=== PATIENT | female | born 1960 | race Caucasian/White ===

== ENCOUNTER 2021-06-23 05:58 | Inpatient (IN) | payer OTHER, SELFPAY ==
[2021-06-23] VITALS (88 sets, daily range): BP systolic 54–158; BP diastolic 17–95; PULSE 94–131; RESP 23–49; TEMP 35.3–37.1; O2SAT 64–96
--- NOTE | ~2021-06-23 | XR_ITS ---
XR chest port-a-cath/central DATE: 06/23/2021 09:00 INDICATION: Central line insertion TECHNIQUE: Portable AP view on 06/23/2021 at 0855 hours COMPARISON: 06/23/2021 portable AP chest at 0758 hours FINDINGS: Interval placement of right internal jugular central venous catheter, the tip overlying the right atrium. Persistent pulmonary vascular congestion and bilateral pulmonary infiltrates suggesting pulmonary timbo ma. Pneumonia is not excluded. Multiple surgical clips overlie the right axillary area and lower right chest. IMPRESSION: Right internal jugular central venous catheter placement in right atrium; no evidence of pneumothorax Reviewed, dictated and finalized at [facility]. Reviewed, dictated and finalized at location A. IMPRESSION: Right internal jugular central venous catheter placement in right a trium; no evidence of pneumothorax
--- NOTE | ~2021-06-23 | XR_ITS ---
EXAMINATION: XR chest 1V portable DATE: 06/24/2021 08:07 INDICATION: Pneumonia. Respiratory failure. TECHNIQUE: frontal view of the chest was obtained. COMPARISON: Chest radiograph dated 06/23/2021 FINDINGS: Endotracheal tube tip 4.1 cm above the francisco javier. Nasogastric tube extends below the left hemidiaphragm with distal tip collimated off the study. Right internal jugular central venous catheter with distal tip near the superior cavoatrial junction. Lung volumes remain small but have increased with improved aeration particularly on the left. Persist ent interstitial and mild airspace opacities throughout both lungs. Small left pleural effusion. No p neumothorax. Arch size is normal. Multiple surgical clips project over the right chest and axilla. Bi lateral acromioplasty is and distal clavicle resections. IMPRESSION: 1. Improving aeration of lungs with persistent diffuse bilateral lung disease which could represent p ulmonary edema or pneumonia. 2. Small left pleural effusion. Reviewed, dictated and finalized at location A. IMPRESSION: 1. Improving aeration of lungs with persistent diffuse bilateral lung disease w hich could represent pulmonary edema or pneumonia. 2. Small left pleural effusion.
--- NOTE | ~2021-06-23 | XR_ITS ---
EXAMINATION: XR chest 1V portable EXAM DATE: 06/24/2021 20:48 INDICATION: Increased oxygenation, respiratory distress. TECHNIQUE: Portable AP frontal chest x-ray was obtained. Comparison is made to prior examination from earlier same date. FINDINGS: There is a right-sided IJ venous line in position. Endotracheal tube in adequate position. There is a nasogastric tube seen with tip collimated off the study, but below the left hemidiaphragm . Diffuse bilateral pneumonia and/or edema, not significantly changed. Small pleural effusions. There is no pneumothorax suspected. The cardiomediastinal silhouette is prominent but magnified on this AP technique. There are bony degenerative changes. There are right axillary surgical clips. IMPRESSION: 1. Line and tube(s) in position. 2. Diffuse airspace disease. 3. Small pleural effusions.. Reviewed, dictated and finalized at location G.
--- NOTE | ~2021-06-23 | US_ITS ---
EXAMINATION: US venous doppler [facility] DATE: 06/25/2021 08:35 INDICATION: Left arm swelling TECHNIQUE: Grayscale images without and with compression and Doppler images of the left upper extremi ty veins were obtained. COMPARISON: None. FINDINGS: The left internal jugular vein, subclavian vein, axillary vein, brachial vein, basilic vein, cephalic vein, radial vein, and ulnar vein are patent. IMPRESSION: 1. Patent left upper extremity veins. No evidence of venous thrombosis. Reviewed, dictated and finalized at location A.
--- NOTE | ~2021-06-23 | XR_ITS ---
EXAMINATION: XR chest 1V portable INDICATION: Shortness of breath TECHNIQUE: Portable AP chest at 0758 hours COMPARISON: 10/01/2017 FINDINGS: There is chronic elevation of the right hemidiaphragm. Diffuse interstitial and airspace op acities are present. The cardiomediastinal silhouette is stable. No definite pleural effusion or pneu mothorax are identified. There are changes of right mastectomy and right axillary lymph node dissecti on. IMPRESSION: 1. Diffuse lung disease which could reflect pneumonia and/or pulmonary edema. Reviewed, dictated and finalized at location B.
--- NOTE | ~2021-06-23 | XR_ITS ---
EXAMINATION: XR chest 1V portable DATE: 06/26/2021 05:22 INDICATION: Pneumonia and respiratory failure TECHNIQUE: frontal view of the chest was obtained. COMPARISON: Chest radiograph dated 06/25/2021 FINDINGS: Endotracheal tube tip 2.7 cm above the francisco javier. Nasogastric tube tip in proximal side port in the stom ach. Right internal jugular central venous catheter with distal tip in the right atrium. And right lung volume is small. Diffuse airspace opacities throughout the bilateral lungs with interv al improvement in the left lower lung zone. Bronchiectatic changes in the right lung. Small left pleu ral effusion. No pneumothorax. The cardiomediastinal silhouette is normal. Surgical clips at the righ t chest and axilla. Severe right glenohumeral osteoarthritis. IMPRESSION: 1. Diffuse bilateral airspace opacities with some improvement in the left lower lung zone consistent with decreasing pulmonary edema and/or pneumonia. 2. Small right lung along with bronchiectasis consistent with underlying chronic lung disease. 3. Small left pleural effusion. Reviewed, dictated and finalized at location A. IMPRESSION: 1. Diffuse bilateral airspace opacities with some improvement in the left lower lung zone consistent with decreasing pulmonary edema and/or pneumonia. 2. Small right lung along with bronchiectasis consistent with underlying chroni c lung disease. 3. Small left pleural effusion.
--- NOTE | ~2021-06-23 | XR_ITS ---
EXAMINATION: XR chest ET placement INDICATION: Endotracheal tube placement TECHNIQUE: Portable AP chest at 1141 hours COMPARISON: 0855 hours FINDINGS: An endotracheal tube has been inserted which ends in the right mainstem bronchus. A right i nternal jugular catheter ends with its tip in the right atrium. Diffuse interstitial and airspace opa cities are seen. Cardiomegaly is noted. There are changes of right mastectomy and right axillary lymp h node dissection. IMPRESSION: 1. Endotracheal tube in the right mainstem bronchus. Tube has been repositioned on subsequent radiogr aph submitted at the same time. 2. Diffuse lung disease, consistent with pneumonia/or pulmonary edema. Reviewed, dictated and finalized at location B. IMPRESSION: 1. Endotracheal tube in the right mainstem bronchus. Tube has been repositioned on subsequent radiograph submitted at the same time. 2. Diffuse lung disease, consistent with pneumonia/or pulmonary edema.
--- NOTE | ~2021-06-23 | XR_ITS ---
EXAMINATION: XR abdomen NG/feed tube insert INDICATION: OG insertion TECHNIQUE: Portable AP KUB-NG at 1151 hours COMPARISON: None available FINDINGS: The orogastric tube tube is followed as far as the stomach. Its tip is beyond the inferior margin of the radiograph. An endotracheal tube ends 1.3 cm above the francisco javier. There is diffuse lung di sease. IMPRESSION: 1. OG tube in the stomach. Reviewed, dictated and finalized at location B. IMPRESSION: 1. OG tube in the stomach.
--- NOTE | ~2021-06-23 | XR_ITS ---
EXAMINATION: XR chest 1V portable DATE: 06/25/2021 05:28 INDICATION: Pneumonia. Respiratory failure. TECHNIQUE: frontal view of the chest was obtained. COMPARISON: Chest radiograph dated 06/24/2021 FINDINGS: Endotracheal tube tip 3.1 cm above the francisco javier. Nasogastric tube tip in the body of the stomach. Right internal jugular central venous catheter with distal tip near the superior cavoatrial junction. Lung volumes have decreased. Diffuse airspace opacities throughout both lungs with central air bronch ograms. Small bilateral pleural effusions. The cardiomediastinal silhouette is within normal limits f or AP technique. Multiple surgical clips at the right chest and axilla. IMPRESSION: 1. Decreased lung volumes with persistent diffuse bilateral lung disease which could represent pneumo stefani, pulmonary edema, ARDS or some combination thereof. 2. Small bilateral pleural effusions. Reviewed, dictated and finalized at location A. IMPRESSION: 1. Decreased lung volumes with persistent diffuse bilateral lung disease which could represent pneumonia, pulmonary edema, ARDS or some combination thereof. 2. Small bilateral pleural effusions.
--- NOTE | ~2021-06-23 | CT_ITS ---
EXAMINATION: CTA chest PE protocol DATE: 06/23/2021 10:44 INDICATION: Shortness of breath, history of breast cancer TECHNIQUE: Computed tomography angiography (CTA) of the chest was performed with 100 mL Omnipaque-350 intravenous contrast timed to evaluate the pulmonary arteries. Coronal maximum intensity projection 3D-reconstructions were created by the technologist. The dose-length product (DLP) was 450.94 mGy-cm. Automated exposure control and iterative reconstruction technique were employed. COMPARISON: 10/09/2017 FINDINGS: The pulmonary arteries are well-opacified. No pulmonary embolism is identified although sen sitivity is limited by respiratory motion. There is near complete opacification of the left lung with interstitial and airspace opacities. Interstitial and airspace opacities are present throughout the right lung to a lesser degree. There are areas of honeycombing in the right lung. There is elevation of the right hemidiaphragm. There is mild mediastinal lymphadenopathy. Supraclavicular lymph nodes on the left are upper limits of normal in size. The heart size is normal. There are changes of right ma stectomy and right axillary lymph node dissection. There is moderate thoracic spondylosis. A right in ternal jugular central venous catheter ends with its tip in the proximal right atrium. IMPRESSION: 1. No definite pulmonary embolus identified, sensitivity limited by motion. 2. Diffuse lung disease, left greater than right, consistent with pneumonia/or pulmonary edema. 3. Changes of the lungs suggestive of usual interstitial pneumonia. Reviewed, dictated and finalized at location B.
--- NOTE | ~2021-06-23 | XR_ITS ---
XR chest 1V portable DATE: 06/29/2021 09:04 INDICATION: Respiratory failure TECHNIQUE: Portable AP chest on 06/29/2021 at 0859 hours COMPARISON: 06/28/2021 portable AP chest at 0511 hours FINDINGS: ET tube tip is 1.3 cm above francisco javier; ideal range is 2-5 cm. Right internal jugular central venous catheter tip is situated near the inferior cavoatrial area. NG tube in stomach. Patchy infiltrates are noted throughout the lungs, greater in the lower lung zones, increased since . These may be due to pulmonary edema and/or pneumonia or aspiration pneumonitis. No pneumoth orax. There is bilateral apical capping. Numerous surgical clips overlie the right axillary and right chest and right upper abdominal area. IMPRESSION: ET tube tip 1.3 cm above francisco javier; ideal range is 2-5 cm Extensive bilateral pulmonary infiltrates, increased since 06/28/2021 Reviewed, dictated and finalized at location A.
--- NOTE | ~2021-06-23 | XR_ITS ---
EXAMINATION: XR chest 1V portable DATE: 06/27/2021 05:55 INDICATION: Pneumonia. Respiratory failure. TECHNIQUE: frontal view of the chest was obtained. COMPARISON: Chest radiograph dated 06/26/[address] dated 06/25/2021 FINDINGS: Endotracheal tube tip 1.9 cm above the francisco javier. Nasogastric tube extends below the left hemidiaphragm with distal tip collimated off the study. Right internal jugular central venous catheter with distal tip in the right atrium. Slight improvement in diffuse bilateral airspace opacities. Decreasing small left pleural effusion. R ight lung volume is decreased with elevation of the right hemidiaphragm and coarse reticular opacitie s in the right lung despite bronchiectasis and chronic interstitial lung disease on prior CT. No pneu mothorax. Heart size is normal. Surgical clips at the right chest and axilla. IMPRESSION: 1. Improving diffuse bilateral lung disease which could represent pulmonary edema and/or pneumonia. 2. Decreasing small left pleural effusion. 3. Small right lung with bronchiectasis and unilateral chronic interstitial lung disease. Reviewed, dictated and finalized at location A. IMPRESSION: 1. Improving diffuse bilateral lung disease which could represent pulmonary timbo ma and/or pneumonia. 2. Decreasing small left pleural effusion. 3. Small right lung with bronchiectasis and unilateral chronic interstitial gonzales g disease.
--- NOTE | ~2021-06-23 | XR_ITS ---
EXAMINATION: XR chest 1V portable DATE: 06/28/2021 06:01 INDICATION: Pneumonia and respiratory failure. TECHNIQUE: frontal view of the chest was obtained. COMPARISON: Chest radiograph dated 06/27/[address] dated 06/25/2021 FINDINGS: Endotracheal tube tip 2.6 cm above the francisco javier. Nasogastric tube tip in the body of the stomach. Right internal jugular central venous catheter tip near the superior cavoatrial junction. Continued improv ement in airspace opacities in the left mid to lower lung zone and in the right lung. Right lung volu mes remain small with more coarse reticular opacities in the due at least in part to bronchiectasis a nd chronic interstitial lung disease. Unchanged small left pleural effusion. No pneumothorax. The car diomediastinal silhouette is normal. Surgical clips at the right chest and axilla. Severe right gleno humeral osteoarthritis. IMPRESSION: 1. Continued improvement in bilateral opacities which could represent pulmonary edema or pneumonia. 2. Unchanged small left pleural effusion. 3. Small right lung volume with bronchiectasis and lateral chronic interstitial lung disease. Reviewed, dictated and finalized at location A.
--- NOTE | ~2021-06-23 | CT_ITS ---
EXAMINATION: CT chest abdomen pelvis wo con DATE: 06/25/2021 13:43 INDICATION: Septic shock and leukocytosis TECHNIQUE: Computed tomography (CT) of the chest, abdomen, and pelvis was performed without intraveno us contrast. Automated exposure control and iterative reconstruction technique were employed. The dos e-length product was 827.25 mGy-cm. COMPARISON: Chest CT dated 06/23/[address] abdomen and pelvis dated 08/03/2015 FINDINGS: CHEST CT: Endotracheal tube tip 3.2 cm above the francisco javier. Right internal jugular central venous catheter tip in the right atrium. Nasogastric tube tip in the stomach. There are diffuse groundglass opacities throug hout both lungs more prominent on the left and with interval improvement since the prior study. There is asymmetric prominent bronchiectasis and associated honeycombing in the right lung. Small left ple ural effusion. Heart size is normal. No pericardial effusion. Thoracic aorta is normal in caliber. Po stoperative change of prior right mastectomy and right axillary lymph node dissection. There is left axillary, left supraclavicular and mediastinal lymphadenopathy. There is asymmetric subcutaneous joi a at the left breast and axilla and supraclavicular region which suggests possibility of lymphatic ob struction in the setting of metastatic disease. There is a moderate-sized right glenohumeral joint ef fusion with erosions along the undersurface of the acromion and at the margins of the humeral head wh ich could be related to advanced rotator cuff arthropathy or an inflammatory arthritis either septic or aseptic. Mildly displaced anterior left rib fracture with irregular fracture margins suggesting th is is either subacute or pathologic. ABDOMEN/PELVIS CT: Parasagittal vicariously excreted contrast within the normal gallbladder likely related to the earlie r contrast-enhanced CT. Liver, spleen, pancreas and bilateral adrenal glands are normal. 1-2 mm nonob structing renal stones at the upper pole of the right kidney and lower pole of the left kidney. No hy dronephrosis. There are some cortical scarring at the left kidney likely sequela of prior infection o r infarction. No bowel obstruction or abnormal bowel wall thickening. There is no inflammatory strand ing along the cecum or about what is likely a normal appendix. Miles catheter in the normal bladder. Uterus and bilateral adnexa are unremarkable. No abscess or free intraperitoneal gas or fluid. Bilate ral hypoplastic riblets at T12 and sacralized L5 segment. Chronic appearing mild L1 compression fract ure. IMPRESSION: 1. Interval improvement in diffuse groundglass opacities throughout both lungs with left side predomi nance consistent with improving pulmonary edema or pneumonia. 2. No significant change in chronic asymmetric right-sided bronchiectasis and peripheral honeycombing of indeterminate etiology. 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 3. Small left pleural effusion. 4. Right glenohumeral joint effusion with erosions along the acromion and humeral head which given th e provided history is concerning for septic arthritis. Differential includes advanced rotator cuff ar thropathy or other aseptic inflammatory arthritis. 5. Left axillary, supraclavicular and mediastinal lymphadenopathy with edema in the left arm, axilla and supraclavicular region which raises concern for lymphatic obstruction in the setting of metastati c disease. Would consider ultrasound guided biopsy of one of the left supraclavicular lymph nodes. 6. Anterior left second rib fracture which could be either subacute or pathologic. 7. Bilateral nonobstructing nephrolithiasis. No acute intra-abdominal/pelvic process. Reviewed, dictated and finalized at location A. Electronically signed by Aguilar Kirk M.D. on 05/31
--- NOTE | 2021-06-23 06:02 | ECG_ITS ---
Measurements Intervals [place] Rate: 119 P: -18 MN: 122 QRS: -16 QRSD: 88 T: 35 QT: 259 QTc: 365 Interpretive Statements SINUS TACHYCARDIA LEFT ATRIAL ENLARGEMENT [-0.15mV P WAVE IN V1/V2] WANDERING BASELINE LIMITS INTERPRETABILITY POOR R-WAVE PROGRESSION NONSPECIFIC T-WAVE ABNORMALITY ABNORMAL ECG NO PREVIOUS ECG AVAILABLE FOR COMPARISON Electronically Signed On 06-23-2021 16:18:40 CDT by Juarez Clements M.D.
--- NOTE | 2021-06-23 06:03 | ED.SOB ---
HPI - SOB/Dyspnea General Chief Complaint: Shortness of Breath/Dyspnea <Bong Maldonado MD - Last Filed: 06/23/21 06:56> Stated Complaint: SOB <Bong Maldonado MD - Last Filed: 06/23/21 06:56> Time Seen by Provider: 06/23/21 06:01 <Bong Maldonado MD - Last Filed: 06/23/21 06:56> Source: patient and EMS <Bong Maldonado MD - Last Filed: 06/23/21 06:56> Mode of arrival: EMS <Bong Mladonado MD - Last Filed: 06/23/21 06:56> Limitations: clinical condition <Bong Maldonado MD - Last Filed: 06/23/21 06:56> History of Present Illness HPI Narrative: Patient is a 60-year-old female brought in by EMS in respiratory distress. Patient states that her shortness of breath started today. Patient has a history of COPD. Patient denies being on oxygen at home. According to EMS her oxygen saturation was in the 70s when they arrived. <Bong Maldonado MD - Last Filed: 06/23/21 06:56> Related Data Home Medications: Home Medications Medication Instructions Recorded Confirmed Acetaminophen Extra Strength 1,000 mg PO PRN PRN 06/23/21 06/23/21 Euthyrox 50 mcg PO DAILY 06/23/21 06/23/21 Vitamin D3 125 mcg PO DAILY 06/23/21 06/23/21 duloxetine 60 mg PO DAILY 06/23/21 06/23/21 meloxicam 25 mg PO DAILY 06/23/21 06/23/21 <Bong Maldonado MD - Last Filed: 06/23/21 06:56> Allergies/Adverse Reactions: Allergies Allergy/AdvReac Type Severity Reaction Status Date / Time No Known Allergies Allergy Verified 06/23/21 06:03 <Bong Maldonado MD - Last Filed: 06/23/21 06:56> Review of Systems Review of Systems: All systems reviewed & are unremarkable except as noted in HPI and below <Bong Maldonado MD - Last Filed: 06/23/21 06:56> Constitutional: Constitutional: Denies body ache(s), Denies chills, Denies excessive sweating, Denies fatigue, Denies fever(s), Denies headache(s), Denies lethargy, Denies malaise, Denies weakness and Denies weight loss <Bong Maldonado MD - Last Filed: 06/23/21 06:56> Eyes: Eyes: Denies blurry vision, Denies change in vision and Denies loss of vision <Bong Maldonado MD - Last Filed: 06/23/21 06:56> ENT: Denies dizziness, Denies ear discharge, Denies headache(s), Denies lip swelling, Denies epistaxis, Denies nasal congestion, Denies neck pain, Denies throat swelling and Denies tongue swelling <Bong Maldonado MD - Last Filed: 06/23/21 06:56> Cardiovascular: Cardiovascular: Denies chest pain, Denies chest pain at rest, Denies chest pain with activity, Denies diaphoresis, Denies rapid heart rate, Denies edema, Denies irregular heart rhythm, Denies lightheadedness and Denies palpitations <Bong Maldonado MD - Last Filed: 06/23/21 06:56> Respiratory: Respiratory: Denies chest congestion and Denies hemoptysis <Bong Maldonado MD - Last Filed: 06/23/21 06:56> Gastrointestinal: Gastrointestinal: Denies abdominal pain, Denies melena, Denies hematochezia, Denies diarrhea, Denies nausea, Denies vomiting and Denies hematemesis <Bong Maldonado MD - Last Filed: 06/23/21 06:56> Musculoskeletal: Musculoskeletal: Denies abnormal gait, Denies deformity, Denies joint swelling, Denies limited range of motion, Denies neck pain and Denies numbness <Bong Maldonado MD - Last Filed: 06/23/21 06:56> Neurologic: Denies Abnormal speech present, Denies abnormal gait, Denies confusion, Denies dizziness, Denies headache(s), Denies focal weakness, Denies loss of vision, Denies numbness, Denies Other visual disturbances, Denies Sensory deficit (Neuro) and Denies weakness <Bong Maldonado MD - Last Filed: 06/23/21 06:56> Psychiatric: Psychiatric: Denies confusion, Denies depression, Denies auditory hallucinations, Denies homicidal ideation and Denies suicidal ideation <Bong Maldonado MD - Last Filed: 06/23/21 06:56> Endocrine: Endocrine: Denies cold intolerance, Denies excessive sweating, Denies fatigue, Denies heat intolerance and
[2021-06-23] MEDS: ALBUTEROL SULFATE NEB 2.5 MG/0.5 ML INH 5 MG INHALATION (06:12)
[2021-06-23] MEDS: IPRATROPIUM BR 0.02% INH SOLN 0.5 MG/2.5 ML VIAL INHALATION ×2 (06:12→12:00)
[2021-06-23] MEDS: methylPREDNISolone SOD SUCC 125 MG VIAL IV PUSH (06:15)
--- NOTE | 2021-06-23 06:18 | PC.NURSE ---
Pt has depends filled with stool. Pt immediately changed and pericare performed. Multipes wounds and excoriation noted. Pt staetes she does not see wound care her daughter takes care of her wounds. Pericare performed pt turned to keep pressure of coccyx. Pt educated on need to keep area open and dry
[2021-06-23] MEDS: LACTATED RINGERS 1,000 ML 999 ML IV CONT (06:38)
--- NOTE | 2021-06-23 06:53 | PC.NURSE ---
Spoke to Adriana (daughter and animal care technician) on phone who states the pt woke her w/ symptoms HEALTH SERVICES DIRECTOR. Pt has a home health nurse starting next week per daughter. Update given w/ pts permission.
--- NOTE | 2021-06-23 07:17 | PC.NURSE ---
BSSR given to Low ALFARO
[2021-06-23 07:18] LABS: Add Urine Microscopic? YES; Appearance Urine Cloudy (Clear); Bilirubin Urine Negative (Negative); Blood Urine Negative (Negative); Color Urine Amber (Yellow); Glucose Urine UA Negative (Negative); Ketones Urine Negative (Negative); Leukocyte Esterase Ur Negative LEU/UL (Negative); Mucus Urine Rare /lpf; Nitrate Urine Negative (Negative); Protein Urine Negative (Negative); RBC Urine 0-2 /hpf (0-2); Specific Grav Ur 1.027 (1.001-1.035); Squamous Epithelial Cell Urine Few /hpf (Few); Urobilinogen Urine Negative mg/dL (<2.0); WBC Urine 0-3 /hpf
[2021-06-23 07:19] LABS: Basophils Absolute Auto 0.1 K/mm3 (0.0-0.1); Basophils Percent Auto 0.3 % (0.2-1.2); Eosinophils Percent Auto 0.1 % (0-4.4); Hematocrit 46.2 % (37.0-47.0); Hemoglobin 14.6 g/dL (12.0-15.0); Immature Granulocyte Absolute 0.84 K/mm3 (0.00-0.031); Immature Granulocyte Percent A 2.2 % (0-0.5); Lymphocytes Absolute Auto 2.37 K/mm3 (0.9-3.2); Lymphocytes Percent Auto 6.1 % (18.3-44.2); Mean Corpuscular HGB Conc 31.6 g/dl (32-36); Mean Corpuscular Hemoglobin 31.8 pg (26-34); Mean Corpuscular Volume 100.7 fl (80-100); Monocytes Absolute Auto 1.5 K/mm3 (0.1-0.6); Monocytes Percent Auto 3.8 % (2.6-8.5); Neutrophils Absolute Auto 34.2 K/mm3 (1.3-6.7); Neutrophils Percent Auto 87.5 % (45.5-73.1); Platelet Count Result 355 k/mm3 (150-375); Red Blood Count 4.59 M/mm3 (4.2-5.4)
[2021-06-23] MEDS: SODIUM CHLORIDE 0.9% IV 1,000 ML 999 ML IV CONT (07:39)
--- NOTE | 2021-06-23 07:41 | PC.NURSE ---
ANGELINA Esteves called for IV ultrasound placement.
[2021-06-23 07:46] LABS: Alveolar/Arterial O2 Gradient 597.5 mmHg; Base Excess ABG -4.5 mEq/l (+/-2.0); Fractional Inspired Oxygen 100 %; HCO3 ABG 20.4 mEq/l (22.0-26.0); Oxygen Content ABG 17.7 %vol (16.0-22.0); Oxygen Saturation ABG 95.3 % (95.0-100.0); Oxyhemoglobin 92.8 % THb (90.0-100.0); PCO2 ABG 36.9 mmHg (35.0-45.0); PO2 ABG 78.6 mmHg (80.0-100.0); PO2 FiO2 Ratio Arterial Blood 0.79 %; Total Hemoglobin 13.5 g/dL (12.0-18.0)
[2021-06-23 07:47] LABS: Device BIPAP; Expiratory Pressure 5 cmH2O; Inspiratory Pressure 12 cmH2O; Modified Allen's Test Pass; Site Drawn LEFT RADIAL
[2021-06-23 07:52] LABS: Alanine Aminotransferase 54 U/L (4-35); Alkaline Phosphatase 118 U/L (38-126); Anion Gap 13 mmol/L (8-16); Aspartate Amino Transferase 67 U/L (14-36); Bilirubin,Total 0.7 mg/dL (0.2-1.3); Blood Urea Nitrogen 39 mg/dL (7-17); Calcium 8.8 mg/dL (8.4-10.2); Carbon Dioxide 17 mmol/L (22-30); Chloride 103 mmol/L (98-107); Estimated Glomerular Filt Rate 57; Glucose 155 mg/dL (65-110); Potassium 4.8 mmol/L (3.4-5.0); Sodium 133 mmol/L (137-145)
[2021-06-23 07:52] LABS: INR 1.2; Prothrombin Time 14.4 Seconds (11.1-14.7)
[2021-06-23 07:53] LABS: Partial Thromboplastin Time 23.4 SECONDS (22.3-36.8)
[2021-06-23 07:53] LABS: Lactic Acid Reflex 5.3 mmol/L (0.7-2.1)
[2021-06-23 08:04] LABS: NT Pro B Type Natriuretic Pept 708 pg/mL (5-100); Troponin I 0.012 ng/mL (0.000-0.034)
[2021-06-23 08:11] LABS: D Dimer 1.65 ug/mL (<0.48)
--- NOTE | 2021-06-23 08:28 | PC.NURSE ---
FADY Molina in room for central line placement
[2021-06-23] MEDS: NOREPINEPHRINE 8 MG/D5W 250 ML 8 MG/250 ML BAG 9.38 MG IV CONT (09:38)
[2021-06-23 10:08] LABS: Influenza A QL RT-PCR Negative (Negative); Influenza B QL RT-PCR Negative (Negative); SARS-CoV-2 RNA PCR Negative
[2021-06-23 10:39] LABS: Reflex Lactic Acid Yes or No Add Lactic
[2021-06-23] MEDS: SODIUM CHLORIDE 0.9% IV 500 ML (11:05)
[2021-06-23] MEDS: ALBUTEROL SULFATE NEB 2.5 MG/0.5 ML INH INHALATION (12:00)
[2021-06-23] MEDS: DORNASE ALFA INH SOLN 1 MG/ML 2.5 ML AMP 2.5 MG INHALATION (12:10)
--- NOTE | 2021-06-23 12:12 | WPDCNINT ---
Assessment and Plan Assessment and plan (1) Acute respiratory failure: Code(s): J96.00 - Acute respiratory failure, unspecified whether with hypoxia or hypercapnia Status: Acute Assessment and Plan: patient presented with sudden onset of shortness of breath on 06/23/2021 to the ED. she was found to have O2 sats in the 70s, placed on BiPAP 12/5 at 100% with some improvement. upon arrival to the ICU patient was breathing 40-50 times a minute, in significant respiratory distress, impending respiratory failure. Rate decided to intubate the patient. intubation was uneventful, was difficult to bag the patient, stat chest x-ray was done that showed and ETT was in the right mainstem bronchus, once ETT was withdrawn and the correct position, bagging was easier but patient's O2 sats remained low. Patient was placed in prone position and started on Flolan with improvement in her O2 sats - currently on CMV mode of ventilation, tidal volume of 280 mL, rate of 28, peep of 14 and 100% FiO2 - chest x-ray post intubation showed diffuse lung disease consistent with pneumonia and/or pulmonary edema - patient started on Flolan - sedated with fentanyl, Versed infusions. - Nimbex infusion started for neuromuscular blockade and ventilator synchrony - will obtain ABGs (2) Septic shock: Code(s): A41.9 - Sepsis, unspecified organism; R65.21 - Severe sepsis with septic shock Status: Acute Assessment and Plan: patient presented with systolic blood pressure in the ED of 60s, was given 2 L IV fluid bolus, additional 500 mL IV fluid bolus was given in the ICU - right IJ central line was inserted in the ER due to peripheral venous insufficiency - patient was started on Levophed, will maintain MAP > 65 mmHg for adequate end organ perfusion - likely source is the lungs and/or bloodstream - started patient on vancomycin and is cefepime 06/23/2021. Patient did receive a dose of ceftriaxone and azithromycin in the ER - blood cultures will be obtained, will also obtain sputum cultures - elevated lactic acid, repeat lactic was 1.9 - continue maintenance IV fluids - pt on prednisone at home, will start her on stress dose steroids (3) Pneumonia: Code(s): J18.9 - Pneumonia, unspecified organism Status: Acute Assessment and Plan: chest x-ray shows diffuse bilateral pneumonia - treatment as mentioned above (4) Hypothyroidism: Code(s): E03.9 - Hypothyroidism, unspecified Status: Chronic Assessment and Plan: will start levothyroxine per tube (5) Essential hypertension: Code(s): I10 - Essential (primary) hypertension Status: Chronic Assessment and Plan: hold all antihypertensives as pt is on pressors (6) Depression: Code(s): F32.A - Depression, unspecified Status: Chronic Assessment and Plan: On duloxetine at home. will hold for now (7) Osteoarthritis: Code(s): M19.90 - Unspecified osteoarthritis, unspecified site Status: Chronic Assessment and Plan: Pt is on prednisone at home (8) DVT prophylaxis: Code(s): Z29.9 - Encounter for prophylactic measures, unspecified Status: Acute Assessment and Plan: Lovenox Additional Plan Stress ulcer prophylaxis: Protonix Code status: Critical care time spent: This dictation may have been done utilizing a voice recognition system. Attempts have been made to correct errors. However, there may be uncorrected grammatical, spelling, and recognition errors present. Due to a high probability of clinically significant, life threatening deterioration, the patient required my highest level of preparedness to intervene emergently and I personally spent this critical care time directly and personally managing the patient. This critical care time included obtaining a history; examining the patient; pulse oximetry; ordering and review of studies; arranging urgent treatment with development
[2021-06-23] MEDS: CISATRACURIUM BESYLATE 200 MG in DEXTROSE 5% 80 ML 6.75 ML IV CONT (12:17)
[2021-06-23] MEDS: EPOPROSTENOL SODIUM 0.5 MG VIAL 1 MG INHALATION ×2 (12:30→18:25)
[2021-06-23] MEDS: MIDAZOLAM 100MG/NS 100ML(*CRX) 100 MG/100 ML BAG IV CONT (12:30)
[2021-06-23] MEDS: FENTANYL 2,500MCG/NS250ML(*CRX 2,500 MCG/250 ML BAG IV CONT (12:30)
[2021-06-23] MEDS: SODIUM CHLORIDE 0.9% IV 1,000 ML 75 ML IV CONT (13:02)
[2021-06-23 13:10] LABS: Basophils Absolute Auto 0.3 K/mm3 (0.0-0.1); Basophils Percent Auto 0.4 % (0.2-1.2); Hematocrit 44.5 % (37.0-47.0); Hemoglobin 13.9 g/dL (12.0-15.0); Immature Granulocyte Absolute 1.14 K/mm3 (0.00-0.031); Immature Granulocyte Percent A 1.8 % (0-0.5); Immature Platelet Fraction Pct 5.7 % (0.9-11.2); Lymphocytes Absolute Auto 0.91 K/mm3 (0.9-3.2); Lymphocytes Percent Auto 1.4 % (18.3-44.2); Mean Corpuscular HGB Conc 31.2 g/dl (32-36); Mean Corpuscular Hemoglobin 31.4 pg (26-34); Mean Corpuscular Volume 100.7 fl (80-100); Mean Platelet Volume 10.5 fl (7.4-10.4); Monocytes Absolute Auto 1.3 K/mm3 (0.1-0.6); Neutrophils Absolute Auto 60.9 K/mm3 (1.3-6.7); Neutrophils Percent Auto 94.4 % (45.5-73.1); Platelet Count Result 286 k/mm3 (150-375); Red Blood Count 4.42 M/mm3 (4.2-5.4); Red Cell Distribution Width 15.8 % (11.5-14.5)
[2021-06-23] MEDS: PANTOPRAZOLE SODIUM IV 40 MG VIAL IV PUSH (13:16)
[2021-06-23] MEDS: ENOXAPARIN 40 MG/0.4 ML SYRINGE SUB-Q (13:16)
[2021-06-23 13:18] LABS: Magnesium 1.3 mg/dL (1.6-2.3); Phosphorus 5.6 mg/dL (2.5-4.5)
[2021-06-23 13:19] LABS: Alanine Aminotransferase 57 U/L (4-35); Alkaline Phosphatase 142 U/L (38-126); Anion Gap 10 mmol/L (8-16); Aspartate Amino Transferase 58 U/L (14-36); Bilirubin,Total 0.5 mg/dL (0.2-1.3); Blood Urea Nitrogen 39 mg/dL (7-17); Carbon Dioxide 20 mmol/L (22-30); Chloride 103 mmol/L (98-107); Estimated Glomerular Filt Rate 46; Glucose 224 mg/dL (65-110); Lactic Acid 1.9 mmol/L (0.7-2.1); Potassium 4.9 mmol/L (3.4-5.0); Sodium 133 mmol/L (137-145)
--- NOTE | 2021-06-23 13:22 | PM.IMHP ---
H&P: HPI History of Present Illness Date/Time: 06/23/21 1245 This is a 60-year-old female patient who came to the emergency room in respiratory distress. The patient stated that her shortness of breath started today. She does have a history of COPD. She denied use any any oxygen at home. Is reported that the patient's oxygen level was in the 70s when EMS came to her house. The patient was placed on a BiPAP and her respirations were in the 40s. The staff contacted the patient's daughter to verify her code status and explained to the patient that she needed to be intubated. The patient was intubated per event planner in the ICU. Her WBCs were 39.0. Neutrophil percentage 87.5. Absolute neutrophils 34.2. D-dimer is 1.65. Sodium is slightly low at 133. Her lactic was initially 5.3 and came down to 1.9. Glucose initially 155 and then came up to 224. BNP 708. The patient was found to be negative for influenza and COVID. Urine cultures and blood cultures are pending. Chest CTA was read as the following 1. No definite pulmonary embolus identified, sensitivity limited by motion. 2. Diffuse lung disease, left greater than right, consistent with pneumonia/or pulmonary edema. 3. Changes of the lungs suggestive of usual interstitial pneumonia. The patient was given Solu-Medrol, neb treatments, IV fluids, she was started on azithromycin and Rocephin. Also vancomycin. She was started on Levophed. As well as a fentanyl and Versed drip. The patient is being admitted to ICU to inpatient services on the date of service of 06/23/2021. Chief Complaint: Respiratory distress Review of Systems Review of Systems: ROS unobtainable: Yes unobtainable due to endotracheal tube PMFSH Past Medical History Medical History (Updated 06/23/21 @ 13:36 by Monique Light NP) Depression Essential hypertension History of breast cancer Right breast mastectomy 2004 with chemotherapy and radiation History of tobacco use Hypothyroidism Osteoarthritis Surgical History Surgical History (Updated 06/23/21 @ 13:36 by Monique Light NP) History of right mastectomy Family History Family History Mother Family history of thyroid disease Hypertension Sibling Patient's brother is in good health Family history of malignant neoplasm Father Carcinoma of colon Patient's father is Other Diabetes mellitus Family history of cardiovascular disease Family history of malignant neoplasm of breast Social History Social History (Updated 06/23/21 @ 13:38 by Monique Light NP) Social History: The patient smoked 1 pack a cigarettes per day for year but then she quit when she was 28 years old. She had significant secondhand smoke exposure her whole life. The patient worked in a [employer] prior to becoming placed on disability for her osteoarthritis in her knees. Her due to complications of diabetes several years ago. Smoking status: Heavy tobacco smoker Alcohol intake: never Gender identity (if verbalized by the patient): Female Meds Home Medications and Allergies Home Medications Medication Instructions Recorded Confirmed Type Acetaminophen Extra Strength 1,000 mg PO PRN PRN 06/23/21 06/23/21 History Euthyrox 50 mcg PO DAILY 06/23/21 06/23/21 History Vitamin D3 125 mcg PO DAILY 06/23/21 06/23/21 History duloxetine 60 mg PO DAILY 06/23/21 06/23/21 History meloxicam 25 mg PO DAILY 06/23/21 06/23/21 History Allergies Allergy/AdvReac Type Severity Reaction Status Date / Time No Known Allergies Allergy Verified 06/23/21 06:03 Vital Signs Vital Signs - 24 hr 06/23/21 05:56 06/23/21 06:01 06/23/21 06:13 Temperature 35.9 C L Pulse Rate 121 H 123 H 125 H Respiratory Rate 49 H 48 H Blood Pressure 87/44 L Pulse Oximetry 88 L 93 06/23/21 06:25 06/23/21 06:30 06/23/21 07:07 Temperature Pulse Rate 116 H 112 H 106 H Respirato
[2021-06-23] MEDS: HYDROCORTISONE SODIUM SUCCINATE 100 MG/2 ML VIAL IV PUSH ×2 (13:32→21:45)
[2021-06-23 13:40] LABS: White Blood Count 64.5 K/mm3 (4.5-10.0)
[2021-06-23] MEDS: NOREPINEPHRINE 8 MG/D5W 250 ML 8 MG/250 ML BAG 16.88 MG IV CONT (13:42)
[2021-06-23] MEDS: MAGNESIUM SULF 2 GM/WATER 50ML 2 GM/50 ML BAG IVPB (13:58)
[2021-06-23 14:16] LABS: Alveolar/Arterial O2 Gradient 504.9 mmHg; Base Excess ABG -13.9 mEq/l (+/-2.0); Carboxyhemoglobin 0.7 % THb (0-2.0); Fractional Inspired Oxygen 100 %; HCO3 ABG 16.2 mEq/l (22.0-26.0); Methemoglobin ABG 0.2 %THb (0-1.5); Oxygen Content ABG 19.7 %vol (16.0-22.0); Oxygen Saturation ABG 98.1 % (95.0-100.0); Oxyhemoglobin 96.7 % THb (90.0-100.0); PCO2 ABG 54.8 mmHg (35.0-45.0); PO2 ABG 153.3 mmHg (80.0-100.0); PO2 FiO2 Ratio Arterial Blood 1.53 %; Reduced Hemoglobin 2.4 %THb (0-5.0); Total Hemoglobin 14.3 g/dL (12.0-18.0)
[2021-06-23 14:17] LABS: Modified Allen's Test Pass; pH ABG 7.089 (7.350-7.450)
[2021-06-23 14:18] LABS: Arterial Blood Gas PEEP 14 cmH2O; Arterial Blood Gas Tidal Volume 280 ml; Arterial Blood Gas Vent Mode CMV; Arterial Blood Gas Ventilator rate 28 /MIN; Device VENTILATOR
[2021-06-23] MEDS: SODIUM BICARBONATE 8.4% 50 MEQ/50 ML SYRINGE 100 MEQ IV PUSH (14:23)
[2021-06-23] MEDS: hetaSTARCH 6%/NACL 500 ML 250 ML IV CONT (14:51)
[2021-06-23] MEDS: SODIUM BICARBONATE 8.4% 150 MEQ in DEXTROSE 5% 1,000 ML 950 ML 75 MEQ IV CONT (15:09)
--- NOTE | 2021-06-23 16:08 | PC.NURSE ---
This patient, Alcira Dennis, was admitted to Intensive Care Unit-7 at 11 am. Patient/family oriented to hospital policies and general routines including ID bracelet, bed and alarms, visiting hours, pain management, procedures, bathroom and other care routines, personal items, smoking policy, room service/diet, and visiting hours. Information on how to activate the Rapid Response Team has been discussed. Patient/Family are encouraged to report perceived risks to care and to ask questions if they do not understand what they are told or what they should do. Dr. Chin at bedside.
[2021-06-23 17:09] LABS: Glucose Point of Care 394 mg/dl (65-105)
[2021-06-23] MEDS: INSULIN ASPART (*BKC) 100 UNITS/ML SUB-Q ×2 (17:09→23:54)
[2021-06-23] MEDS: CENTRAL LINE FLUSH 10 ML IV PUSH ×2 (17:11→21:45)
[2021-06-23 18:28] LABS: Site Drawn LEFT RADIAL
[2021-06-23] MEDS: MINERAL OIL/WHITE PETROLATUM OINTMENT 1 APPLIC EACH EYE (20:40)
[2021-06-23 20:49] LABS: Alveolar/Arterial O2 Gradient 572.5 mmHg; Base Excess ABG -3.3 mEq/l (+/-2.0); Fractional Inspired Oxygen 100 %; HCO3 ABG 24.2 mEq/l (22.0-26.0); Oxygen Content ABG 15.5 %vol (16.0-22.0); Oxygen Saturation ABG 94.9 % (95.0-100.0); Oxyhemoglobin 94.7 % THb (90.0-100.0); PCO2 ABG 55.2 mmHg (35.0-45.0); PO2 ABG 85.3 mmHg (80.0-100.0); PO2 FiO2 Ratio Arterial Blood 0.85 %; Total Hemoglobin 11.6 g/dL (12.0-18.0)
[2021-06-23 20:51] LABS: Device VENTILATOR; Modified Allen's Test Pass; Site Drawn LEFT RADIAL
[2021-06-23 20:52] LABS: Arterial Blood Gas PEEP 10 cmH2O; Arterial Blood Gas Tidal Volume 320 ml; Arterial Blood Gas Vent Mode CMV; Arterial Blood Gas Ventilator rate 28 /MIN
[2021-06-23] MEDS: NOREPINEPHRINE 8 MG/D5W 250 ML 8 MG/250 ML BAG 24.38 MG IV CONT (21:44)
[2021-06-24] VITALS (63 sets, daily range): BP systolic 55–162; BP diastolic 36–95; PULSE 86–117; RESP 24–96; TEMP 36.1–37.2; O2SAT 80–100
--- NOTE | 2021-06-24 | ECHO_ITS ---
Patient Info Name: Alcira Dennis Age: 60 years : 1960 Gender: Female Ht: 59 in Wt: 167 lbs BSA: 1.81 m2 HR: 89 bpm BP: 103 / 74 mmHg Technical Quality: Fair Exam Date: 06/24/2021 10:25 AM Exam Location: [facility] Patient Status: Inpatient Admit Date: 06/23/2021 Staff Ordering Physician: Nicolas Chin MD Street Light Wirer: Sofi Gil RDCS Attending Provider: Zach Maloney MD Referring Physician: Giuseppe SIMS; Exam Type: CA echo dop color flow w con Study Info Indications R65.21 - Severe sepsis with septic shock Complete two-dimensional, color flow and Doppler transthoracic echocardiogram is performed with contrast to opacify the left ventricle and to improve the deliniation of the left ventricle endocardial borders. Contrast/Agitated Saline Contrast/Ag. Saline: Definity Amount: 2.00 ml Summary 1. Left ventricular chamber dimension is normal. 2. Definity contrast administered improved wall motion interpretation. 3. Left ventricular systolic function is normal, estimated at 60-65%. 4. The left ventricular diastolic function is grade I diastolic dysfunction. 5. E/e' 9 is minimally elevated. 6. There is trace tricuspid valve regurgitation. 7. No pulmonary hypertension, estimated pulmonary arterial systolic pressure is 35 mmHg. Left Ventricle E/e' 9 is minimally elevated. Definity contrast administered improved wall motion interpretation. Left ventricular chamber dimension is normal. Left ventricular systolic function is normal, estimated at 60-65%. The left ventricular diastolic function is grade I diastolic dysfunction. Right Ventricle Right ventricular chamber dimension is normal. Right ventricular systolic function is normal. Left Atria Left atrial chamber dimension is normal. Right Atria Right atrial chamber dimension is normal. Aortic Valve The aortic valve is not well visualized. Cannot determine number of aortic valve leaflets. There is no aortic valve stenosis. There is no aortic valve regurgitation. Pulmonic Valve There is no pulmonic regurgitation. Mitral Valve There is no mitral valve stenosis. There is no mitral valve regurgitation. Tricuspid Valve There is trace tricuspid valve regurgitation. No pulmonary hypertension, estimated pulmonary arterial systolic pressure is 35 mmHg. Pericardium/Pleural There is no pericardial effusion. Inferior Vena Cava Normal inferior vena cava with >50% collapse upon inspiration consistent with normal right atrial pressure, 5 mmHg. Aorta The aortic root size at the sinus of Valsalva is not well visualized. Left Ventricular Outflow Tract Name Value Normal LVOT 2D LVOT Diameter 2.36 cm LVOT Doppler LVOT Peak Gradient 2 mmHg LVOT Mean Gradient 1 mmHg LVOT VTI 12.75 cm LVOT VTI/AV VTI Ratio 0.92 LVOT Stroke Volume 55.97 ml LVOT CO 4.94 l/min LVOT CI
[2021-06-24] MEDS: EPOPROSTENOL SODIUM 0.5 MG VIAL 1 MG INHALATION ×2 (00:07→05:40)
[2021-06-24 00:15] LABS: Glucose Point of Care 236 mg/dl (65-105)
[2021-06-24] MEDS: CISATRACURIUM BESYLATE 200 MG in DEXTROSE 5% 80 ML 5.63 ML IV CONT (03:17)
[2021-06-24] MEDS: CENTRAL LINE FLUSH 10 ML IV PUSH ×3 (04:34→21:00)
[2021-06-24 05:41] LABS: Hematocrit 38.4 % (37.0-47.0); Hemoglobin 12.5 g/dL (12.0-15.0); INR 1.5; Immature Granulocyte Absolute 0.79 K/mm3 (0.00-0.031); Immature Granulocyte Percent A 1.5 % (0-0.5); Lymphocytes Absolute Auto 1.67 K/mm3 (0.9-3.2); Lymphocytes Percent Auto 3.1 % (18.3-44.2); Mean Corpuscular HGB Conc 32.6 g/dl (32-36); Mean Corpuscular Hemoglobin 31.6 pg (26-34); Mean Corpuscular Volume 97.2 fl (80-100); Monocytes Absolute Auto 0.9 K/mm3 (0.1-0.6); Monocytes Percent Auto 1.7 % (2.6-8.5); Neutrophils Absolute Auto 49.7 K/mm3 (1.3-6.7); Neutrophils Percent Auto 93.7 % (45.5-73.1); Platelet Count Result 149 k/mm3 (150-375); Prothrombin Time 17.3 Seconds (11.1-14.7); Red Blood Count 3.95 M/mm3 (4.2-5.4); Red Cell Distribution Width 15.7 % (11.5-14.5)
[2021-06-24 05:42] LABS: Partial Thromboplastin Time 31.8 SECONDS (22.3-36.8)
[2021-06-24 05:42] LABS: Alveolar/Arterial O2 Gradient 580.6 mmHg; Base Excess ABG 7.7 mEq/l (+/-2.0); Carboxyhemoglobin 0.4 % THb (0-2.0); Fractional Inspired Oxygen 100 %; HCO3 ABG 32.6 mEq/l (22.0-26.0); Methemoglobin ABG 0.3 %THb (0-1.5); Oxygen Content ABG 17.4 %vol (16.0-22.0); Oxygen Saturation ABG 96.8 % (95.0-100.0); Oxyhemoglobin 95.4 % THb (90.0-100.0); PCO2 ABG 46.8 mmHg (35.0-45.0); PO2 ABG 85.6 mmHg (80.0-100.0); PO2 FiO2 Ratio Arterial Blood 0.86 %; Reduced Hemoglobin 3.9 %THb (0-5.0); Total Hemoglobin 12.9 g/dL (12.0-18.0); pH ABG 7.461 (7.350-7.450)
[2021-06-24 05:44] LABS: Arterial Blood Gas PEEP 10 cmH2O; Arterial Blood Gas Vent Mode CMV; Arterial Blood Gas Ventilator rate 28 /MIN; Device VENTILATOR; Site Drawn LEFT RADIAL
[2021-06-24 05:45] LABS: Arterial Blood Gas Tidal Volume 320 ml
[2021-06-24 05:46] LABS: Lactic Acid Reflex 1.3 mmol/L (0.7-2.1)
[2021-06-24 06:04] LABS: Alanine Aminotransferase 36 U/L (4-35); Albumin Level 2.4 g/dL (3.5-5.1); Alkaline Phosphatase 92 U/L (38-126); Anion Gap 3 mmol/L (8-16); Aspartate Amino Transferase 24 U/L (14-36); Bilirubin,Total 0.3 mg/dL (0.2-1.3); Blood Urea Nitrogen 43 mg/dL (7-17); Calcium 7.1 mg/dL (8.4-10.2); Carbon Dioxide 30 mmol/L (22-30); Chloride 99 mmol/L (98-107); Estimated Glomerular Filt Rate 51; Glucose 162 mg/dL (65-110); Magnesium 1.8 mg/dL (1.6-2.3); Phosphorus 2.9 mg/dL (2.5-4.5); Potassium 4.4 mmol/L (3.4-5.0); Sodium 132 mmol/L (137-145)
[2021-06-24] MEDS: HYDROCORTISONE SODIUM SUCCINATE 100 MG/2 ML VIAL IV PUSH ×3 (06:20→21:07)
[2021-06-24] MEDS: LEVOTHYROXINE SODIUM 50 MCG TABLET PO (06:20)
[2021-06-24] MEDS: SODIUM BICARBONATE 8.4% 150 MEQ in DEXTROSE 5% 1,000 ML 950 ML 75 MEQ IV CONT (06:22)
[2021-06-24 07:12] LABS: White Blood Count 53.1 K/mm3 (4.5-10.0)
--- NOTE | 2021-06-24 08:33 | WPDINTPN ---
Progress Note: A&P Assessment and Plan (1) Acute respiratory failure: Code(s): J96.00 - Acute respiratory failure, unspecified whether with hypoxia or hypercapnia Status: Acute Assessment and Plan: patient presented with sudden onset of shortness of breath on 06/23/2021 to the ED. she was found to have O2 sats in the 70s, placed on BiPAP 12/5 at 100% with some improvement. upon arrival to the ICU patient was breathing 40-50 times a minute, in significant respiratory distress, impending respiratory failure. Rate decided to intubate the patient. intubation was uneventful, was difficult to bag the patient, stat chest x-ray was done that showed and ETT was in the right mainstem bronchus, once ETT was withdrawn and the correct position, bagging was easier but patient's O2 sats remained low. Patient was placed in prone position and started on Flolan with improvement in her O2 sats - currently on CMV mode of ventilation, tidal volume of 320 mL, rate of 28, peep of 10 and 100% FiO2 -ABGs much improved -chest x-ray this morning shows improving aeration of lungs with persistent diffuse bilateral lung disease which could represent pulmonary edema or pneumonia. Small left pleural effusion -patient currently in prone position, will place patient in supine position and evaluate her oxygenation. - sedated with fentanyl, Versed infusions. Continue Nimbex infusion for neuromuscular blockade and ventilator synchrony (2) Septic shock: Code(s): A41.9 - Sepsis, unspecified organism; R65.21 - Severe sepsis with septic shock Status: Acute Assessment and Plan: patient presented with systolic blood pressure in the ED of 60s, was given 2 L IV fluid bolus, additional 500 mL IV fluid bolus was given in the ICU - right IJ central line was inserted in the ER due to peripheral venous insufficiency - patient was started on Levophed, will maintain MAP > 65 mmHg for adequate end organ perfusion - likely source is the lungs and/or bloodstream - started patient on vancomycin and is cefepime 06/23/2021. Patient did receive a dose of ceftriaxone and azithromycin in the ER - 06/23: blood cultures negative x2 so for - 06/23: Urine and sputum cultures pending -leukocytosis improved, lactate remains normal - continue maintenance IV fluids, switch bicarb infusion to normal saline -continue stress dose steroids (3) Pneumonia: Code(s): J18.9 - Pneumonia, unspecified organism Status: Acute Assessment and Plan: chest x-ray shows diffuse bilateral pneumonia - treatment as mentioned above Chest CTA on 05/26/2021: Diffuse lung disease left greater than right consistent with pneumonia/or pulmonary edema. No definite pulmonary embolism, changes of the lungs suggestive of usual interstitial pneumonia. (4) Hypothyroidism: Code(s): E03.9 - Hypothyroidism, unspecified Status: Chronic Assessment and Plan: Continue levothyroxine (5) Essential hypertension: Code(s): I10 - Essential (primary) hypertension Status: Chronic Assessment and Plan: hold all antihypertensives as pt is on pressors (6) Depression: Code(s): F32.A - Depression, unspecified Status: Chronic Assessment and Plan: On duloxetine at home. will hold for now (7) Osteoarthritis: Code(s): M19.90 - Unspecified osteoarthritis, unspecified site Status: Chronic Assessment and Plan: Pt is on chronic prednisone at home for osteoarthritis/rheumatoid arthritis -have placed patient on stress dose steroids (8) Hyperglycemia: Code(s): R73.9 - Hyperglycemia, unspecified Status: Acute Assessment and Plan: Continue Accu-Cheks and sliding scale insulin. Most likely related to stress dose steroids -long-acting insulin if needed (9) DVT prophylaxis: Code(s): Z29.9 - Encounter for prophylactic measures, unspecified Status: Acute Assessment and Plan: Lovenox Add
[2021-06-24] MEDS: ENOXAPARIN 40 MG/0.4 ML SYRINGE SUB-Q (09:12)
[2021-06-24] MEDS: MINERAL OIL/WHITE PETROLATUM OINTMENT 1 APPLIC EACH EYE ×2 (09:12→21:04)
[2021-06-24] MEDS: NOREPINEPHRINE 8 MG/D5W 250 ML 8 MG/250 ML BAG 13.13 MG IV CONT (09:16)
[2021-06-24] MEDS: SODIUM CHLORIDE 0.9% IV 1,000 ML 75 ML (09:19)
[2021-06-24] MEDS: SODIUM CHLORIDE 0.9% IV 1,000 ML 75 ML IV CONT (09:20)
[2021-06-24] MEDS: PERFLUTREN LIPID MICROSPHERES 1.5 ML VIAL DILUTED TO 10 ML TOTAL VOLUME IV PUSH (10:27)
--- NOTE | 2021-06-24 11:38 | PM.IMPN ---
Progress Note: A&P Assessment and Plan (1) Septic shock: Code(s): A41.9 - Sepsis, unspecified organism; R65.21 - Severe sepsis with septic shock Status: Acute Assessment and Plan: Associated with acute hypoxemic respiratory required ventilation support as well as vasopressor support. T treated with n Levophed. She is intubated sedated. CTA suggestive of diffuse lung disease, left greater than right, consistent with pneumonia/or pulmonary edema. Changes of the lungs suggestive of usual interstitial pneumonia. Patient was found to be negative for COVID. She is currently on cefepime, Levaquin and vancomycin. The patient is in the ICU under the care of the c software engineer. Patient was found to be negative for PE. (2) Pneumonia: Code(s): J18.9 - Pneumonia, unspecified organism Status: Acute Assessment and Plan: Patient has been treated with cefepime, Levaquin, and vancomycin. Blood and urine cultures are pending. Sputum cultures are pending. Continue with nebulizer treatments. Neb dex was started. Continue to monitor ABGs. (3) Hypothyroidism: Code(s): E03.9 - Hypothyroidism, unspecified Status: Chronic Assessment and Plan: . Continue with levothyroxine. (4) Depression: Code(s): F32.A - Depression, unspecified Status: Chronic Assessment and Plan: Patient is typically on duloxetine. Subjective Date/time seen: 06/24/21 11:38 Interval history: 60 years old male with past history of hypertension hypothyroidism presented to the hospital with shortness of breath associated with hypoxia patient condition deteriorated rapidly required intubation and admission to ICU patient was found to have septic shock treated with IV antibiotic currently patient is sedated on a vent CT scan concern for pulmonary edema versus infiltrative pneumonia Patient started on broad-spectrum IV antibiotic vancomycin and cefepime Unable to provide history sedated intubated I am seeing the patient for pneumonia Exam Narrative: Sedated intubated Chest decreased air entry bilateral Abdomen nontender nondistended CVS S1 + S2 Lower extremity minimal edema Objective Data Vital Signs Vital Signs: Vital Signs - 24 hr 06/23/21 11:50 06/23/21 12:00 06/23/21 12:10 Temperature Pulse Rate 131 H 107 H 115 H Respiratory Rate 26 H 28 H 28 H Blood Pressure 158/95 H 102/67 Pulse Oximetry 81 L 84 L 06/23/21 12:17 06/23/21 12:20 06/23/21 12:30 Temperature Pulse Rate 119 H 112 H 110 H Respiratory Rate 28 H 28 H 28 H Blood Pressure 94/83 L 103/87 118/94 H Pulse Oximetry 78 L 85 L 06/23/21 12:41 06/23/21 12:46 06/23/21 12:51 Temperature 98.3 F 98.4 F Pulse Rate 113 H 112 H 112 H Respiratory Rate 28 H 28 H 28 H Blood Pressure 118/66 96/78 L 90/60 L Pulse Oximetry 90 92 91 06/23/21 12:55 06/23/21 13:00 06/23/21 13:01 Temperature 98.5 F 98.5 F 98.5 F Pulse Rate 111 H 111 H 111 H Respiratory Rate 28 H 28 H 28 H Blood Pressure 110/77 97/70 L Pulse Oximetry 91 92 91 06/23/21 13:06 06/23/21 13:11 06/23/21 13:16 Temperature 98.6 F 98.6 F 98.6 F Pulse Rate 109 H 116 H 108 H Respiratory Rate 28 H 28 H 28 H Blood Pressure 109/71 94/60 L 105/61 Pulse Oximetry 92 93 93 06/23/21 13:21 06/23/21 13:26 06/23/21 13:30 Temperature 98.7 F 98.7 F 98.7 F Pulse Rate 105 H 104 H 105 H Respiratory Rate 28 H 28 H 28 H Blood Pressure 79/54 L 70/28 L 87/62 L Pulse Oximetry 91 94 94 06/23/21 13:36 06/23/21 13:41 06/23/21 13:42 Temperature 98.6 F 98.6 F Pulse Rate 104 H 103 H 103 H Respiratory Rate 28 H 28 H Blood Pressure 54/32 L 80/29 L 80/29 L Pulse Oximetry 95 95 06/23/21 13:50 06/23/21 13:55 06/23/21 14:00 Temperature 98.5 F 98.4 F Pulse Rate 103 H 102 H 97 Respiratory Rate 28 H 28 H Blood Pressure Pulse Oximetry 95 95 95 06/23/21 14:10 06/23/21 14:18 06/23/21 14:20 Temperature 98.3 F 98.1 F 98.1 F Pulse Rate 98 96 96 Respiratory Rate 28 H 2
[2021-06-24 12:04] LABS: Glucose Point of Care 151 mg/dl (65-105)
[2021-06-24] MEDS: PANTOPRAZOLE SODIUM IV 40 MG VIAL IV PUSH (13:00)
[2021-06-24] MEDS: ALBUTEROL SULFATE NEB 2.5 MG/0.5 ML INH INHALATION ×2 (14:32→20:14)
[2021-06-24] MEDS: IPRATROPIUM BR 0.02% INH SOLN 0.5 MG/2.5 ML VIAL INHALATION ×2 (14:33→20:14)
[2021-06-24 18:14] LABS: Glucose Point of Care 123 mg/dl (65-105)
[2021-06-24] MEDS: DORNASE ALFA INH SOLN 1 MG/ML 2.5 ML AMP 2.5 MG INHALATION (20:14)
[2021-06-24] MEDS: AMIODARONE 150 MG/D5W 100 ML 150 MG/100 ML BAG 600 MG IV CONT (20:37)
[2021-06-24] MEDS: ROCURONIUM BROMIDE 50 MG/5 ML VIAL IV PUSH (20:38)
[2021-06-24] MEDS: AMIODARONE 360 MG/D5W 200 ML 360 MG/200 ML BAG 33.33 MG IV CONT (20:48)
[2021-06-24] MEDS: MAGNESIUM SULF 2 GM/WATER 50ML 2 GM/50 ML BAG IVPB (21:05)
[2021-06-24] MEDS: FENTANYL 2,500MCG/NS250ML(*CRX 2,500 MCG/250 ML BAG 20 MCG IV CONT (23:31)
[2021-06-25] VITALS (53 sets, daily range): BP systolic 83–155; BP diastolic 44–77; PULSE 86–103; RESP 13–31; TEMP 36.8–37.4; O2SAT 85–97
[2021-06-25 00:27] LABS: Glucose Point of Care 190 mg/dl (65-105)
[2021-06-25] MEDS: MIDAZOLAM 100MG/NS 100ML(*CRX) 100 MG/100 ML BAG 6 MG IV CONT ×2 (00:40→18:33)
[2021-06-25] MEDS: SODIUM CHLORIDE 0.9% IV 1,000 ML 75 ML IV CONT (00:50)
[2021-06-25] MEDS: NOREPINEPHRINE 8 MG/D5W 250 ML 8 MG/250 ML BAG 24.38 MG IV CONT (00:51)
[2021-06-25] MEDS: IPRATROPIUM BR 0.02% INH SOLN 0.5 MG/2.5 ML VIAL INHALATION ×4 (01:59→19:09)
[2021-06-25] MEDS: ALBUTEROL SULFATE NEB 2.5 MG/0.5 ML INH INHALATION ×4 (02:00→19:09)
[2021-06-25] MEDS: AMIODARONE 360 MG/D5W 200 ML 360 MG/200 ML BAG 16.67 MG IV CONT ×2 (02:32→13:03)
[2021-06-25 05:07] LABS: Base Excess ABG 1.4 mEq/l (+/-2.0); Carboxyhemoglobin 1.2 % THb (0-2.0); HCO3 ABG 29.1 mEq/l (22.0-26.0); Methemoglobin ABG 0.3 %THb (0-1.5); Oxygen Content ABG 14.4 %vol (16.0-22.0); Oxygen Saturation ABG 91.2 % (95.0-100.0); Oxyhemoglobin 90.3 % THb (90.0-100.0); PO2 ABG 68.4 mmHg (80.0-100.0); Reduced Hemoglobin 8.2 %THb (0-5.0); Total Hemoglobin 11.3 g/dL (12.0-18.0)
[2021-06-25 05:13] LABS: Arterial Blood Gas PEEP 10 cmH2O; Arterial Blood Gas Tidal Volume 320 ml; Arterial Blood Gas Vent Mode CMV; Arterial Blood Gas Ventilator rate 28 /MIN; Device VENTILATOR; Fractional Inspired Oxygen 100 %; Modified Allen's Test Pass; Site Drawn LEFT RADIAL
[2021-06-25] MEDS: CENTRAL LINE FLUSH 10 ML IV PUSH ×3 (05:37→19:33)
[2021-06-25] MEDS: HYDROCORTISONE SODIUM SUCCINATE 100 MG/2 ML VIAL IV PUSH ×3 (05:40→22:27)
[2021-06-25 05:46] LABS: Basophils Absolute Auto 0.1 K/mm3 (0.0-0.1); Basophils Percent Auto 0.3 % (0.2-1.2); Hematocrit 32.6 % (37.0-47.0); Hemoglobin 10.4 g/dL (12.0-15.0); Immature Granulocyte Absolute 0.95 K/mm3 (0.00-0.031); Immature Granulocyte Percent A 2.1 % (0-0.5); Immature Platelet Fraction Pct 9.7 % (0.9-11.2); Lymphocytes Absolute Auto 0.97 K/mm3 (0.9-3.2); Lymphocytes Percent Auto 2.1 % (18.3-44.2); Mean Corpuscular HGB Conc 31.9 g/dl (32-36); Mean Corpuscular Hemoglobin 31.8 pg (26-34); Mean Corpuscular Volume 99.7 fl (80-100); Mean Platelet Volume 11.1 fl (7.4-10.4); Monocytes Absolute Auto 1.5 K/mm3 (0.1-0.6); Monocytes Percent Auto 3.2 % (2.6-8.5); Neutrophils Absolute Auto 42.4 K/mm3 (1.3-6.7); Neutrophils Percent Auto 92.3 % (45.5-73.1); Platelet Count Result 133 k/mm3 (150-375); Red Blood Count 3.27 M/mm3 (4.2-5.4); Red Cell Distribution Width 15.9 % (11.5-14.5)
[2021-06-25 05:54] LABS: Alanine Aminotransferase 26 U/L (4-35); Albumin Level 2.4 g/dL (3.5-5.1); Alkaline Phosphatase 78 U/L (38-126); Anion Gap 3 mmol/L (8-16); Aspartate Amino Transferase 28 U/L (14-36); Bilirubin,Total 0.3 mg/dL (0.2-1.3); Blood Urea Nitrogen 30 mg/dL (7-17); Calcium 6.6 mg/dL (8.4-10.2); Carbon Dioxide 32 mmol/L (22-30); Chloride 98 mmol/L (98-107); Estimated Glomerular Filt Rate > 60; Glucose 137 mg/dL (65-110); Lactic Acid Reflex 1.2 mmol/L (0.7-2.1); Magnesium 2.6 mg/dL (1.6-2.3); Phosphorus 3.4 mg/dL (2.5-4.5); Potassium 3.7 mmol/L (3.4-5.0); Sodium 133 mmol/L (137-145)
[2021-06-25] MEDS: LEVOTHYROXINE SODIUM 50 MCG TABLET PO (07:13)
[2021-06-25] MEDS: ROCURONIUM BROMIDE 50 MG/5 ML VIAL IV PUSH (07:36)
--- NOTE | 2021-06-25 07:37 | WPDINTPN ---
Progress Note: A&P Assessment and Plan (1) Acute respiratory failure: Code(s): J96.00 - Acute respiratory failure, unspecified whether with hypoxia or hypercapnia Status: Acute Assessment and Plan: patient presented with sudden onset of shortness of breath on 06/23/2021 to the ED. she was found to have O2 sats in the 70s, placed on BiPAP / at 100% with some improvement. upon arrival to the ICU patient was breathing 40-50 times a minute, in significant respiratory distress, impending respiratory failure. Rate decided to intubate the patient. intubation was uneventful, was difficult to bag the patient, stat chest x-ray was done that showed and ETT was in the right mainstem bronchus, once ETT was withdrawn and the correct position, bagging was easier but patient's O2 sats remained low. Patient was placed in prone position and started on Flolan with improvement in her O2 sats - currently on CMV mode of ventilation, tidal volume of 320 mL, rate of 28, peep of 10 and 100% FiO2 -ABGs this morning showed hypercapnic respiratory failure, and hypoxia, peep increased to 12 -chest x-ray this morning shows small lung volumes, diffuse bilateral infiltrates. - sedated with fentanyl, Versed infusions. Will restart Nimbex infusion for neuromuscular blockade and ventilator synchrony (2) Septic shock: Code(s): A41.9 - Sepsis, unspecified organism; R65.21 - Severe sepsis with septic shock Status: Acute Assessment and Plan: patient presented with systolic blood pressure in the ED of 60s, was given 2 L IV fluid bolus, additional 500 mL IV fluid bolus was given in the ICU - right IJ central line was inserted in the ER due to peripheral venous insufficiency -continue Levophed, will maintain MAP > 65 mmHg for adequate end organ perfusion -continue vancomycin, levofloxacin and cefepime 06/23/2021. - 06/23: blood cultures negative x2 so for - 06/23: Urine culture growing E coli -WBC count trending down, lactate remains normal -will discontinue IV fluids -continue stress dose steroids (3) Pneumonia: Code(s): J18.9 - Pneumonia, unspecified organism Status: Acute Assessment and Plan: - treatment as mentioned above Chest CTA on 05/26/2021: Diffuse lung disease left greater than right consistent with pneumonia/or pulmonary edema. No definite pulmonary embolism, changes of the lungs suggestive of usual interstitial pneumonia. (4) UTI (urinary tract infection): Code(s): N39.0 - Urinary tract infection, site not specified Status: Acute Assessment and Plan: 325 urine cultures growing E coli will continue antibiotics as above (5) Hypothyroidism: Code(s): E03.9 - Hypothyroidism, unspecified Status: Chronic Assessment and Plan: Continue levothyroxine (6) Essential hypertension: Code(s): I10 - Essential (primary) hypertension Status: Chronic Assessment and Plan: hold all antihypertensives as pt is on pressors (7) Depression: Code(s): F32.A - Depression, unspecified Status: Chronic Assessment and Plan: On duloxetine at home. will hold for now (8) Osteoarthritis: Code(s): M19.90 - Unspecified osteoarthritis, unspecified site Status: Chronic Assessment and Plan: Pt is on chronic prednisone at home for osteoarthritis/rheumatoid arthritis -have placed patient on stress dose steroids (9) Hyperglycemia: Code(s): R73.9 - Hyperglycemia, unspecified Status: Acute Assessment and Plan: Continue Accu-Cheks and sliding scale insulin. (10) DVT prophylaxis: Code(s): Z29.9 - Encounter for prophylactic measures, unspecified Status: Acute Assessment and Plan: Prophylactic Lovenox SQ -left upper extremity swollen, will obtain venous Dopplers Additional Plan Stress ulcer prophylaxis: Protonix Nutrition: Tolerating tube feeds Will update daughter today Code status:
[2021-06-25] MEDS: CISATRACURIUM BESYLATE 200 MG in DEXTROSE 5% 80 ML 5.49 ML IV CONT (07:44)
[2021-06-25] MEDS: DORNASE ALFA INH SOLN 1 MG/ML 2.5 ML AMP 2.5 MG INHALATION ×2 (08:28→19:09)
[2021-06-25] MEDS: CALCIUM GLUC 1,000 MG/NS 50 ML 1,000 MG/50 ML BAG 100 MG IVPB (09:37)
--- NOTE | 2021-06-25 09:39 | P.PCNBED_ITS ---
Procedures Arterial Line Arterial Line Date: 06/25/21 Arterial Line Time: 09:20 Discussed with the patient/family/POA, the placement of an arterial catheter, including its clinical necessity/indication and associated potential risks, benefits and alternatives.: Yes Patient/family/POA and/or understands and acknowledges the need to proceed with the arterial catheter insertion as an important element of the patient's clinical management.: Yes Time Out Performed: Yes Patient Position: supine [employer] Worker Prep: sterile gown, sterile gloves, mask and hat Site: left and femoral Site Prep: chlorhexidine and sterile drape Technique used: ultrasound-guided Size (Gauge): 18 Length: 12 cm Closure/Dressing: suture, transparent dressing, hemostatic product, antimicrobial product and securement product Patient tolerated procedure: well Complications: none Additional comments: Arterial line was inserted we on getting accurate blood pressures since her left arm is swollen and patient has had a right mastectomy so cannot take blood pressures on the right arm. Also ABGs have been difficult to obtain.
[2021-06-25] MEDS: PANTOPRAZOLE SODIUM IV 40 MG VIAL IV PUSH (09:49)
[2021-06-25] MEDS: ENOXAPARIN 40 MG/0.4 ML SYRINGE SUB-Q (09:50)
[2021-06-25] MEDS: MINERAL OIL/WHITE PETROLATUM OINTMENT 1 APPLIC EACH EYE ×2 (09:50→19:32)
--- NOTE | 2021-06-25 09:55 | PM.IMPN ---
Progress Note: A&P Assessment and Plan (1) Septic shock: Code(s): A41.9 - Sepsis, unspecified organism; R65.21 - Severe sepsis with septic shock Status: Acute Assessment and Plan: Associated with acute hypoxemic respiratory required ventilation support as well as vasopressor support. T treated with n Levophed. She is intubated sedated. CTA suggestive of diffuse lung disease, left greater than right, consistent with pneumonia/or pulmonary edema. Changes of the lungs suggestive of usual interstitial pneumonia. Patient was found to be negative for COVID. She is currently on cefepime, Levaquin and vancomycin. The patient is in the ICU under the care of the benefits technician. Patient was found to be negative for PE. (2) Pneumonia: Code(s): J18.9 - Pneumonia, unspecified organism Status: Acute Assessment and Plan: Patient has been treated with cefepime, Levaquin, and vancomycin. Blood and urine cultures are pending. Sputum cultures are pending. Continue with nebulizer treatments. Neb dex was started. Continue to monitor ABGs. (3) Hypothyroidism: Code(s): E03.9 - Hypothyroidism, unspecified Status: Chronic Assessment and Plan: . Continue with levothyroxine. (4) Depression: Code(s): F32.A - Depression, unspecified Status: Chronic Assessment and Plan: Patient is typically on duloxetine. (5) UTI (urinary tract infection): Code(s): N39.0 - Urinary tract infection, site not specified Status: Acute Assessment and Plan: Secondary to E coli plan for CT scan of the abdomen continue IV antibiotics Subjective Date/time seen: 06/25/21 09:55 Interval history: 60 years old male with past history of hypertension hypothyroidism presented to the hospital with shortness of breath associated with hypoxia patient condition deteriorated rapidly required intubation and admission to ICU patient was found to have septic shock treated with IV antibiotic currently patient is sedated on a vent CT scan concern for pulmonary edema versus infiltrative pneumonia Patient started on broad-spectrum IV antibiotic vancomycin and cefepime Patient still have significant leukocytosis Discussed with benefits technician None for CT scan of the abdomen as patient also has E coli UTI Unable to provide history sedated intubated I am seeing the patient for pneumonia Exam Narrative: Sedated intubated Chest decreased air entry bilateral Abdomen nontender nondistended CVS S1 + S2 Lower extremity minimal edema Objective Data Vital Signs Vital Signs: Vital Signs - 24 hr 06/24/21 10:00 06/24/21 10:01 06/24/21 10:03 Temperature 97 F L Pulse Rate 88 88 88 Respiratory Rate 28 H 28 H Blood Pressure 103/74 Pulse Oximetry 99 99 99 06/24/21 11:16 06/24/21 11:25 06/24/21 11:32 Temperature Pulse Rate 89 88 90 Respiratory Rate 28 H Blood Pressure 111/81 108/73 Pulse Oximetry 99 06/24/21 11:47 06/24/21 12:00 06/24/21 12:32 Temperature 97 F L Pulse Rate 89 90 92 Respiratory Rate 28 H Blood Pressure 93/67 L 84/65 L 69/54 L Pulse Oximetry 98 06/24/21 13:47 06/24/21 14:00 06/24/21 14:33 Temperature 97.2 F L Pulse Rate 91 86 95 Respiratory Rate 28 H 28 H Blood Pressure 81/55 L 104/72 Pulse Oximetry 98 06/24/21 14:37 06/24/21 14:38 06/24/21 15:19 Temperature Pulse Rate 96 95 88 Respiratory Rate 28 H Blood Pressure 113/70 Pulse Oximetry 98 06/24/21 15:49 06/24/21 16:00 06/24/21 16:30 Temperature 97.4 F L Pulse Rate 89 88 90 Respiratory Rate 25 H 24 H 28 H Blood Pressure 77/58 L 93/67 L Pulse Oximetry 97 06/24/21 16:31 06/24/21 17:25 06/24/21 17:48 Temperature Pulse Rate 88 92 91 Respiratory Rate 28 H Blood Pressure 86/53 L Pulse Oximetry 96 06/24/21 18:00 06/24/21 20:00 06/24/21 20:14 Temperature 97.9 F Pulse Rate 95 93 95 Respiratory Rate 30 H 28 H Blood Pressure 101/57 L Pulse Oximetry
[2021-06-25 10:31] LABS: Alveolar/Arterial O2 Gradient 440.9 mmHg; Base Excess ABG 3.2 mEq/l (+/-2.0); Carboxyhemoglobin 0.2 % THb (0-2.0); Fractional Inspired Oxygen 100 %; HCO3 ABG 28.6 mEq/l (22.0-26.0); Methemoglobin ABG 0.3 %THb (0-1.5); Oxygen Content ABG 15.2 %vol (16.0-22.0); Oxygen Saturation ABG 99.5 % (95.0-100.0); Oxyhemoglobin 98.1 % THb (90.0-100.0); PCO2 ABG 47.4 mmHg (35.0-45.0); PO2 ABG 224.7 mmHg (80.0-100.0); PO2 FiO2 Ratio Arterial Blood 2.25 %; Reduced Hemoglobin 1.4 %THb (0-5.0); Site Drawn ARTLINE; Total Hemoglobin 10.6 g/dL (12.0-18.0); pH ABG 7.399 (7.350-7.450)
[2021-06-25 10:32] LABS: Arterial Blood Gas PEEP 12 cmH2O; Arterial Blood Gas Vent Mode ASSIST CONTROL; Arterial Blood Gas Ventilator rate 28 /MIN; Device VENTILATOR
[2021-06-25 10:33] LABS: Arterial Blood Gas Tidal Volume 320 ml
[2021-06-25 11:56] LABS: Glucose Point of Care 138 mg/dl (65-105)
[2021-06-25] MEDS: FENTANYL 2,500MCG/NS250ML(*CRX 2,500 MCG/250 ML BAG 20 MCG IV CONT (12:15)
[2021-06-25] MEDS: NOREPINEPHRINE 8 MG/D5W 250 ML 8 MG/250 ML BAG 15 MG IV CONT (13:02)
[2021-06-25 17:55] LABS: Pneumococcal Antigen Urine Detected (Not Detected)
[2021-06-25] MEDS: METOCLOPRAMIDE HCL INJ 10 MG/2 ML VIAL IV PUSH (18:08)
[2021-06-25 18:14] LABS: Glucose Point of Care 145 mg/dl (65-105)
[2021-06-26] VITALS (80 sets, daily range): BP systolic 87–145; BP diastolic 40–72; PULSE 54–90; RESP 23–32; TEMP 36.1–38.1; O2SAT 91–99; BMI 29.0
[2021-06-26] MEDS: METOCLOPRAMIDE HCL INJ 10 MG/2 ML VIAL IV PUSH ×5 (00:28→23:42)
[2021-06-26] MEDS: FENTANYL 2,500MCG/NS250ML(*CRX 2,500 MCG/250 ML BAG 20 MCG IV CONT ×2 (00:54→13:57)
[2021-06-26] MEDS: AMIODARONE 360 MG/D5W 200 ML 360 MG/200 ML BAG 16.67 MG IV CONT (00:55)
[2021-06-26 01:03] LABS: Glucose Point of Care 139 mg/dl (65-105)
[2021-06-26] MEDS: ALBUTEROL SULFATE NEB 2.5 MG/0.5 ML INH INHALATION ×4 (01:45→20:45)
[2021-06-26] MEDS: IPRATROPIUM BR 0.02% INH SOLN 0.5 MG/2.5 ML VIAL INHALATION ×4 (01:45→20:45)
[2021-06-26] MEDS: CISATRACURIUM BESYLATE 200 MG in DEXTROSE 5% 80 ML 7.32 ML IV CONT (02:26)
[2021-06-26] MEDS: NOREPINEPHRINE 8 MG/D5W 250 ML 8 MG/250 ML BAG 9.38 MG IV CONT (03:24)
[2021-06-26 04:54] LABS: Alveolar/Arterial O2 Gradient 274.1 mmHg; Base Excess ABG 5.5 mEq/l (+/-2.0); Carboxyhemoglobin 0.4 % THb (0-2.0); Fractional Inspired Oxygen 65 %; HCO3 ABG 31.5 mEq/l (22.0-26.0); Methemoglobin ABG 0.3 %THb (0-1.5); Oxygen Content ABG 13.5 %vol (16.0-22.0); Oxygen Saturation ABG 98.5 % (95.0-100.0); PCO2 ABG 54.3 mmHg (35.0-45.0); PO2 ABG 130.3 mmHg (80.0-100.0); Reduced Hemoglobin 2.3 %THb (0-5.0); Total Hemoglobin 9.7 g/dL (12.0-18.0); pH ABG 7.382 (7.350-7.450)
[2021-06-26 05:01] LABS: Device VENTILATOR; Site Drawn ARTLINE
[2021-06-26 05:02] LABS: Arterial Blood Gas PEEP 12 cmH2O; Arterial Blood Gas Tidal Volume 320 ml; Arterial Blood Gas Vent Mode CMV; Arterial Blood Gas Ventilator rate 28 /MIN
[2021-06-26 05:28] LABS: Basophils Percent Auto 0.1 % (0.2-1.2); Hemoglobin 9.3 g/dL (12.0-15.0); Immature Granulocyte Absolute 0.29 K/mm3 (0.00-0.031); Immature Granulocyte Percent A 1.1 % (0-0.5); Immature Platelet Fraction Pct 6.7 % (0.9-11.2); Lymphocytes Absolute Auto 0.71 K/mm3 (0.9-3.2); Lymphocytes Percent Auto 2.6 % (18.3-44.2); Mean Corpuscular Hemoglobin 31.1 pg (26-34); Mean Corpuscular Volume 100.3 fl (80-100); Mean Platelet Volume 10.7 fl (7.4-10.4); Monocytes Absolute Auto 0.7 K/mm3 (0.1-0.6); Monocytes Percent Auto 2.7 % (2.6-8.5); Neutrophils Absolute Auto 25.4 K/mm3 (1.3-6.7); Neutrophils Percent Auto 93.5 % (45.5-73.1); Platelet Count Result 121 k/mm3 (150-375); Red Blood Count 2.99 M/mm3 (4.2-5.4); Red Cell Distribution Width 16.3 % (11.5-14.5); White Blood Count 27.2 K/mm3 (4.5-10.0)
[2021-06-26] MEDS: LEVOTHYROXINE SODIUM 50 MCG TABLET PO (05:38)
[2021-06-26] MEDS: HYDROCORTISONE SODIUM SUCCINATE 100 MG/2 ML VIAL IV PUSH ×3 (05:38→21:17)
[2021-06-26] MEDS: CENTRAL LINE FLUSH 10 ML IV PUSH ×3 (05:38→21:18)
[2021-06-26 06:02] LABS: Alanine Aminotransferase 19 U/L (4-35); Albumin Level 2.4 g/dL (3.5-5.1); Alkaline Phosphatase 65 U/L (38-126); Anion Gap 1 mmol/L (8-16); Aspartate Amino Transferase 28 U/L (14-36); Bilirubin,Total 0.4 mg/dL (0.2-1.3); Blood Urea Nitrogen 18 mg/dL (7-17); Calcium 7.4 mg/dL (8.4-10.2); Carbon Dioxide 34 mmol/L (22-30); Chloride 102 mmol/L (98-107); Estimated Glomerular Filt Rate > 60; Glucose 139 mg/dL (65-110); Magnesium 2.2 mg/dL (1.6-2.3); Phosphorus 2.5 mg/dL (2.5-4.5); Potassium 3.3 mmol/L (3.4-5.0); Sodium 137 mmol/L (137-145)
[2021-06-26] MEDS: DORNASE ALFA INH SOLN 1 MG/ML 2.5 ML AMP 2.5 MG INHALATION ×2 (08:10→20:45)
[2021-06-26] MEDS: POTASSIUM CHLORIDE 20 MEQ PACKET (FOR LIQUID) 40 MEQ PO (08:14)
[2021-06-26] MEDS: ENOXAPARIN 40 MG/0.4 ML SYRINGE SUB-Q (08:15)
[2021-06-26] MEDS: PANTOPRAZOLE SODIUM IV 40 MG VIAL IV PUSH (08:15)
[2021-06-26] MEDS: MINERAL OIL/WHITE PETROLATUM OINTMENT 1 APPLIC EACH EYE ×2 (08:16→21:18)
--- NOTE | 2021-06-26 09:39 | WPDINTPN ---
Progress Note: A&P Assessment and Plan (1) Acute respiratory failure: Code(s): J96.00 - Acute respiratory failure, unspecified whether with hypoxia or hypercapnia Status: Acute Assessment and Plan: patient presented with sudden onset of shortness of breath on 06/23/2021 to the ED. she was found to have O2 sats in the 70s, placed on BiPAP 12/5 at 100% with some improvement. upon arrival to the ICU patient was breathing 40-50 times a minute, in significant respiratory distress, impending respiratory failure. Rate decided to intubate the patient. intubation was uneventful, was difficult to bag the patient, stat chest x-ray was done that showed and ETT was in the right mainstem bronchus, once ETT was withdrawn and the correct position, bagging was easier but patient's O2 sats remained low. Patient was placed in prone position and started on Flolan with improvement in her O2 sats - currently on CMV mode of ventilation, rate of 28, peep of 12, 65% % FiO2, wean FiO2 to maintain O2 sats greater than 92% -chest x-ray and ABGs reviewed - sedated with fentanyl, Versed infusions. Continue Nimbex infusion for neuromuscular blockade and ventilator synchrony (2) Septic shock: Code(s): A41.9 - Sepsis, unspecified organism; R65.21 - Severe sepsis with septic shock Status: Acute Assessment and Plan: patient presented with systolic blood pressure in the ED of 60s, was given 2 L IV fluid bolus, additional 500 mL IV fluid bolus was given in the ICU - right IJ central line was inserted in the ER due to peripheral venous insufficiency -continue Levophed, will maintain MAP > 65 mmHg for adequate end organ perfusion -continue vancomycin, levofloxacin and cefepime 06/23/2021. - 06/23: blood cultures negative x2 so for - 06/23: Urine culture growing E coli -WBC count trending down, lactate remains normal -will discontinue IV fluids -continue stress dose steroids (3) Pneumonia: Code(s): J18.9 - Pneumonia, unspecified organism Status: Acute Assessment and Plan: - treatment as mentioned above - Pneumococcal urine antigen was positive Chest CTA on 05/26/2021: Diffuse lung disease left greater than right consistent with pneumonia/or pulmonary edema. No definite pulmonary embolism, changes of the lungs suggestive of usual interstitial pneumonia. (4) UTI (urinary tract infection): Code(s): N39.0 - Urinary tract infection, site not specified Status: Acute Assessment and Plan: 325 urine cultures growing E coli will continue antibiotics as above (5) Hypothyroidism: Code(s): E03.9 - Hypothyroidism, unspecified Status: Chronic Assessment and Plan: Continue levothyroxine (6) Essential hypertension: Code(s): I10 - Essential (primary) hypertension Status: Chronic Assessment and Plan: hold all antihypertensives as pt is on pressors (7) Depression: Code(s): F32.A - Depression, unspecified Status: Chronic Assessment and Plan: On duloxetine at home. will hold for now (8) Osteoarthritis: Code(s): M19.90 - Unspecified osteoarthritis, unspecified site Status: Chronic Assessment and Plan: Pt is on chronic prednisone at home for osteoarthritis/rheumatoid arthritis -have placed patient on stress dose steroids (9) Hyperglycemia: Code(s): R73.9 - Hyperglycemia, unspecified Status: Acute Assessment and Plan: Continue Accu-Cheks and sliding scale insulin. (10) DVT prophylaxis: Code(s): Z29.9 - Encounter for prophylactic measures, unspecified Status: Acute Assessment and Plan: Prophylactic Lovenox SQ -left upper extremity swollen, will obtain venous Dopplers Additional Plan Stress ulcer prophylaxis: Protonix Nutrition: Tolerating tube feeds 06/25: Updated daughter regarding patient's condition and plan of care. I answered all questions Code status: Full co
[2021-06-26] MEDS: MIDAZOLAM 100MG/NS 100ML(*CRX) 100 MG/100 ML BAG 6 MG IV CONT (10:15)
[2021-06-26 12:20] LABS: Glucose Point of Care 165 mg/dl (65-105)
[2021-06-26 13:01] LABS: Vancomycin Trough < 5.0 ug/mL (10.0-20.0)
[2021-06-26 17:19] LABS: Glucose Point of Care 141 mg/dl (65-105)
--- NOTE | 2021-06-26 20:13 | PC.NURSE ---
Continuous medication titrated per decating machine operator.
[2021-06-26] MEDS: NOREPINEPHRINE 8 MG/D5W 250 ML 8 MG/250 ML BAG 15 MG IV CONT (21:17)
[2021-06-26 21:51] LABS: Legionella pneumophila Ag Ur Not Detected (Not Detected)
[2021-06-26 23:39] LABS: Glucose Point of Care 103 mg/dl (65-105)
[2021-06-26] MEDS: ACETAMINOPHEN 325 MG TABLET 650 MG PO (23:44)
[2021-06-27] VITALS (56 sets, daily range): BP systolic 72–153; BP diastolic 45–77; PULSE 81–106; RESP 28–30; TEMP 35.9–37.8; O2SAT 93–99
[2021-06-27] MEDS: MIDAZOLAM 100MG/NS 100ML(*CRX) 100 MG/100 ML BAG 10 MG IV CONT ×3 (00:30→19:57)
[2021-06-27] MEDS: FENTANYL 2,500MCG/NS250ML(*CRX 2,500 MCG/250 ML BAG 20 MCG IV CONT ×2 (00:31→13:43)
[2021-06-27] MEDS: ALBUTEROL SULFATE NEB 2.5 MG/0.5 ML INH INHALATION ×4 (02:22→20:10)
[2021-06-27] MEDS: IPRATROPIUM BR 0.02% INH SOLN 0.5 MG/2.5 ML VIAL INHALATION ×4 (02:22→20:10)
[2021-06-27 04:30] LABS: Basophils Absolute Auto 0.1 K/mm3 (0.0-0.1); Basophils Percent Auto 0.2 % (0.2-1.2); Hematocrit 31.6 % (37.0-47.0); Hemoglobin 9.5 g/dL (12.0-15.0); Immature Granulocyte Absolute 0.44 K/mm3 (0.00-0.031); Immature Granulocyte Percent A 1.4 % (0-0.5); Immature Platelet Fraction Pct 5.6 % (0.9-11.2); Lymphocytes Absolute Auto 0.97 K/mm3 (0.9-3.2); Lymphocytes Percent Auto 3.1 % (18.3-44.2); Mean Corpuscular HGB Conc 30.1 g/dl (32-36); Mean Corpuscular Hemoglobin 31.4 pg (26-34); Mean Corpuscular Volume 104.3 fl (80-100); Mean Platelet Volume 10.2 fl (7.4-10.4); Monocytes Absolute Auto 1.5 K/mm3 (0.1-0.6); Monocytes Percent Auto 4.9 % (2.6-8.5); Neutrophils Percent Auto 90.4 % (45.5-73.1); Platelet Count Result 149 k/mm3 (150-375); Red Blood Count 3.03 M/mm3 (4.2-5.4); Red Cell Distribution Width 16.3 % (11.5-14.5)
[2021-06-27 04:45] LABS: Alanine Aminotransferase 16 U/L (4-35); Albumin Level 2.7 g/dL (3.5-5.1); Alkaline Phosphatase 66 U/L (38-126); Anion Gap 1 mmol/L (8-16); Aspartate Amino Transferase 20 U/L (14-36); Bilirubin,Total 0.5 mg/dL (0.2-1.3); Blood Urea Nitrogen 21 mg/dL (7-17); Calcium 8.3 mg/dL (8.4-10.2); Carbon Dioxide 36 mmol/L (22-30); Chloride 101 mmol/L (98-107); Estimated Glomerular Filt Rate > 60; Glucose 139 mg/dL (65-110); Magnesium 2.1 mg/dL (1.6-2.3); Phosphorus 2.5 mg/dL (2.5-4.5); Potassium 3.9 mmol/L (3.4-5.0); Sodium 138 mmol/L (137-145)
[2021-06-27 05:05] LABS: Alveolar/Arterial O2 Gradient 546.5 mmHg; Base Excess ABG 6.3 mEq/l (+/-2.0); Fractional Inspired Oxygen 100 %; HCO3 ABG 35.7 mEq/l (22.0-26.0); Oxygen Content ABG 13.4 %vol (16.0-22.0); Oxygen Saturation ABG 93.2 % (95.0-100.0); Oxyhemoglobin 93.8 % THb (90.0-100.0); PO2 ABG 80.9 mmHg (80.0-100.0); PO2 FiO2 Ratio Arterial Blood 0.81 %; Reduced Hemoglobin 6.2 %THb (0-5.0); Total Hemoglobin 10.1 g/dL (12.0-18.0)
[2021-06-27 05:07] LABS: pH ABG 7.238 (7.350-7.450)
[2021-06-27 05:08] LABS: PCO2 ABG 85.6 mmHg (35.0-45.0)
[2021-06-27 05:09] LABS: Arterial Blood Gas PEEP 12 cmH2O; Arterial Blood Gas Vent Mode CMV; Arterial Blood Gas Ventilator rate 28 /MIN; Device VENTILATOR; Site Drawn ARTLINE
[2021-06-27 05:10] LABS: Arterial Blood Gas Tidal Volume 320 ml
[2021-06-27] MEDS: LEVOTHYROXINE SODIUM 50 MCG TABLET PO (06:05)
[2021-06-27] MEDS: HYDROCORTISONE SODIUM SUCCINATE 100 MG/2 ML VIAL IV PUSH ×3 (06:05→23:39)
[2021-06-27] MEDS: METOCLOPRAMIDE HCL INJ 10 MG/2 ML VIAL IV PUSH ×3 (06:05→18:15)
[2021-06-27] MEDS: CENTRAL LINE FLUSH 10 ML IV PUSH ×3 (06:05→23:39)
--- NOTE | 2021-06-27 07:06 | PM.IMPN ---
Progress Note: A&P Assessment and Plan (1) Acute respiratory failure: Code(s): J96.00 - Acute respiratory failure, unspecified whether with hypoxia or hypercapnia Status: Acute Assessment and Plan: patient presented with sudden onset of shortness of breath on 06/23/2021 to the ED. she was found to have O2 sats in the 70s, placed on BiPAP 12/5 at 100% with some improvement. upon arrival to the ICU patient was breathing 40-50 times a minute, in significant respiratory distress, impending respiratory failure. Rate decided to intubate the patient. intubation was uneventful, was difficult to bag the patient, stat chest x-ray was done that showed and ETT was in the right mainstem bronchus, once ETT was withdrawn and the correct position, bagging was easier but patient's O2 sats remained low. Patient was placed in prone position and started on Flolan with improvement in her O2 sats - currently on CMV mode of ventilation, rate of 28, peep of 12, 65% % FiO2, wean FiO2 to maintain O2 sats greater than 92% --Management per ICU (2) Septic shock: Code(s): A41.9 - Sepsis, unspecified organism; R65.21 - Severe sepsis with septic shock Status: Acute Assessment and Plan: patient presented with systolic blood pressure in the ED of 60s, was given 2 L IV fluid bolus, additional 500 mL IV fluid bolus was given in the ICU - right IJ central line was inserted in the ER due to peripheral venous insufficiency -continue Levophed, will maintain MAP > 65 mmHg for adequate end organ perfusion -continue vancomycin, levofloxacin and cefepime 06/23/2021. - 06/23: blood cultures negative x2 so for - 06/23: Urine culture growing E coli -WBC count trending down, lactate remains normal (3) Pneumonia: Code(s): J18.9 - Pneumonia, unspecified organism Status: Acute Assessment and Plan: - Continue antibiotics as noted above - Pneumococcal urine antigen was positive Chest CTA on 05/26/2021: Diffuse lung disease left greater than right consistent with pneumonia/or pulmonary edema. No definite pulmonary embolism, changes of the lungs suggestive of usual interstitial pneumonia. (4) UTI (urinary tract infection): Code(s): N39.0 - Urinary tract infection, site not specified Status: Acute Assessment and Plan: 325 urine cultures growing E coli pansensitive except cefazolin. Abx as noted above. (5) Hypothyroidism: Code(s): E03.9 - Hypothyroidism, unspecified Status: Chronic Assessment and Plan: Continue levothyroxine (6) Essential hypertension: Code(s): I10 - Essential (primary) hypertension Status: Chronic Assessment and Plan: Holding due to septic shock on pressor. (7) Depression: Code(s): F32.A - Depression, unspecified Status: Chronic Assessment and Plan: On duloxetine at home. will hold for now (8) Osteoarthritis: Code(s): M19.90 - Unspecified osteoarthritis, unspecified site Status: Chronic Assessment and Plan: Pt is on chronic prednisone at home for osteoarthritis/rheumatoid arthritis -have placed patient on stress dose steroids (9) Hyperglycemia: Code(s): R73.9 - Hyperglycemia, unspecified Status: Acute Assessment and Plan: Continue Accu-Cheks and sliding scale insulin. (10) DVT prophylaxis: Code(s): Z29.9 - Encounter for prophylactic measures, unspecified Status: Acute Assessment and Plan: Prophylactic Lovenox SQ -left upper extremity swollen, will obtain venous Dopplers Subjective Date/time seen: Date of service 06/26/21 1218 Patient intubated and sedated. Late entry Review of Systems Review of Systems: ROS unobtainable: Yes unobtainable due to endotracheal tube and unobtainable due to medical condition Exam Narrative: GENERAL: sedated lying in bed HEENT: Normocephalic, atraumatic, nares clear NECK: Supple w/ central
--- NOTE | 2021-06-27 07:14 | PM.IMPN ---
Progress Note: A&P Assessment and Plan (1) Acute respiratory failure: Code(s): J96.00 - Acute respiratory failure, unspecified whether with hypoxia or hypercapnia Status: Acute Assessment and Plan: Patient presented with sudden onset of shortness of breath on 06/23/2021 to the ED. she was found to have O2 sats in the 70s, placed on BiPAP 12/5 at 100% with some improvement. upon arrival to the ICU patient was breathing 40-50 times a minute, in significant respiratory distress, impending respiratory failure. Rate decided to intubate the patient. intubation was uneventful, was difficult to bag the patient, stat chest x-ray was done that showed and ETT was in the right mainstem bronchus, once ETT was withdrawn and the correct position, bagging was easier but patient's O2 sats remained low. Patient was placed in prone position and started on Flolan with improvement in her O2 sats -Will follow - Intubated requiring paralytic due to vent asynchrony --Management per ICU (2) Septic shock: Code(s): A41.9 - Sepsis, unspecified organism; R65.21 - Severe sepsis with septic shock Status: Acute Assessment and Plan: patient presented with systolic blood pressure in the ED of 60s, was given 2 L IV fluid bolus, additional 500 mL IV fluid bolus was given in the ICU - right IJ central line was inserted in the ER due to peripheral venous insufficiency -continue Levophed, will maintain MAP > 65 mmHg for adequate end organ perfusion -continue vancomycin, levofloxacin and cefepime 06/23/2021. - 06/23: blood cultures negative x2 so for - 06/23: Urine culture growing E coli -Leukocytosis worsening (3) Pneumonia: Code(s): J18.9 - Pneumonia, unspecified organism Status: Acute Assessment and Plan: - Continue antibiotics as noted above - Pneumococcal urine antigen was positive Chest CTA on 05/26/2021: Diffuse lung disease left greater than right consistent with pneumonia/or pulmonary edema. No definite pulmonary embolism, changes of the lungs suggestive of usual interstitial pneumonia. (4) UTI (urinary tract infection): Code(s): N39.0 - Urinary tract infection, site not specified Status: Acute Assessment and Plan: 325 urine cultures growing E coli pansensitive except cefazolin. Abx as noted above. (5) Hypothyroidism: Code(s): E03.9 - Hypothyroidism, unspecified Status: Chronic Assessment and Plan: Continue levothyroxine (6) Essential hypertension: Code(s): I10 - Essential (primary) hypertension Status: Chronic Assessment and Plan: Holding due to septic shock on pressor. (7) Depression: Code(s): F32.A - Depression, unspecified Status: Chronic Assessment and Plan: On duloxetine at home. will hold for now (8) Osteoarthritis: Code(s): M19.90 - Unspecified osteoarthritis, unspecified site Status: Chronic Assessment and Plan: Pt is on chronic prednisone at home for osteoarthritis/rheumatoid arthritis -have placed patient on stress dose steroids (9) Hyperglycemia: Code(s): R73.9 - Hyperglycemia, unspecified Status: Acute Assessment and Plan: Continue Accu-Cheks and sliding scale insulin. (10) DVT prophylaxis: Code(s): Z29.9 - Encounter for prophylactic measures, unspecified Status: Acute Assessment and Plan: Prophylactic Lovenox SQ Subjective Date/time seen: Date of Service 06/27/21 07:14 Patient sedated and intubated. Review of Systems Review of Systems: ROS unobtainable: Yes unobtainable due to medical condition and unobtainable due to mental status Exam Narrative: GENERAL: sedated lying in bed HEENT: Normocephalic, atraumatic, nares clear NECK: Supple w/ central line CV: Normal S1, S2, RRR, No MRG RESP: CTAB, Normal work of breathing. Abdomen: Soft, non-tender, non-distended, +BS EXTREMITIES: Warm and well perfus
[2021-06-27] MEDS: DORNASE ALFA INH SOLN 1 MG/ML 2.5 ML AMP 2.5 MG INHALATION ×2 (08:07→20:18)
[2021-06-27] MEDS: CISATRACURIUM BESYLATE 200 MG in DEXTROSE 5% 80 ML 5.37 ML IV CONT (08:41)
[2021-06-27] MEDS: CISATRACURIUM BESYLATE 20 MG/10 ML VIAL 10 MG IV PUSH (08:42)
--- NOTE | 2021-06-27 09:16 | PM.CNPUL ---
Assessment and Plan Assessment and plan (1) Pneumonia: Code(s): J18.9 - Pneumonia, unspecified organism Status: Acute Assessment and Plan: Patient presents with 1 day acute onset shortness of breath, leukocytosis, lactic acidosis, shock and hypoxemic respiratory failure requiring intubation with CT scan showing diffuse interstitial and alveolar infiltrates. COVID in influenza test negative. Patient has strep pneumonia urine antigen positivity. Overall the clinical picture is more consistent with bacterial infection than viral infection, opportunistic infection, exacerbation of her interstitial lung disease or vasculitis from a connective tissue disorder. Patient currently on vancomycin, cefepime and Levaquin for bacterial infection. I agree with his current regimen. I will send a multiplex nasal swab before additional respiratory pathogens. (2) Rheumatoid arthritis: Code(s): M06.9 - Rheumatoid arthritis, unspecified Status: Acute Assessment and Plan: Patient carries a diagnosis of rheumatoid arthritis on prednisone 20 mg a day. I will send serologies for rheumatoid arthritis as well as other connective tissue disorders including rheumatoid factor, anti CCP, BRIANA screen including 11 auto antibodies, Anca screen, hypersensitivity pneumonitis, CPK and aldolase levels. Given the likely diagnosis of pneumonia with septic shock I would avoid higher doses of steroids at this time. Currently she is on Solu-Cortef 100 mg IV q.[address] Dillard. Will follow with you. History of Present Illness History of Present Illness Consult date: 06/27/21 Chief complaint: Sepsis/pneumonia/respiratory failure Narrative: 06/27/2021, this is a new pulmonary consult for hypoxic respiratory failure and chronic lung disease 60 year old with ILD dating back to CT scan abdomen 08/03/2015, hypothyroidism, essential hypertension, osteoarthritis of the knees bilaterally, rheumatoid arthritis in chart home medicines include prednisone 20 a day, patient is bed-bound as she cannot walk due to the pain, history of pneumonia bilaterally in 2016, breast CA in 2004 status post radiation. per the family patient is a never smoker and does not have any history of COPD or heart disease, history of depression presented the ED on 06/23/2021 with complains of sudden onset of shortness of breath that started on the morning of admission. Patient has not received a COVID vaccine. Patient had a leukocytosis of 39,000, a positive D-dimer, hypoxemic respiratory failure with a blood gas of 7.36/37/79 on BiPAP 100% 12/5, a lactic acidosis with shock requiring Levophed and respiratory failure requiring intubation. she was influenza and COVID negative. Patient is subsequently tested positive for urine pneumococcal antigen. CT scan on 06/25/2021 demonstrated improvement in diffuse alveolar infiltrates compared with 06/23/2021. Of note the patient on 06/25 was on peep of 12 and was not intubated on 06/23. On 06/26 patient's FiO2 had improved to 65% and the paralytics were discontinued but overnight the patient had worsening hypoxemia requiring FiO2 100% and the patient was reparalyzed. No history of hemoptysis. 06/27 Patient remains in hypoxic respiratory failure requiring paralysis, prone ventilation and Flolan. I was consulted. Patient currently intubated, sedated, paralyzed on levophed, vancomycin, levofloxacin and cefepime. patient is on hydrocortisone 100 Q 8, albuterol, ipratropium, and Pulmozyme. chest x-ray today demonstrates slight improvement in the diffuse interstitial alveolar infiltrates decreasing small left pleural effusion. Blood gas today demonstrates 7.34/86/80 on CMV rate of 28, tidal volume 320, peep of 12 and 100% FiO2. DATA: 06/24/21 Echo Summary 1. Left ventricular chamber dimension is normal. 2. Definity contrast administered improved wall motion interpretation. 3. L
[2021-06-27] MEDS: ENOXAPARIN 40 MG/0.4 ML SYRINGE SUB-Q (09:35)
[2021-06-27] MEDS: DOCUSATE SODIUM LIQ 100 MG/10 ML UDC PO ×2 (09:35→20:00)
[2021-06-27] MEDS: ALBUMIN HUMAN 5% 25 GM/500 ML BTL IV CONT (09:35)
[2021-06-27] MEDS: PANTOPRAZOLE SODIUM IV 40 MG VIAL IV PUSH (09:36)
[2021-06-27] MEDS: polyethylene glycoL 3350 17 GM POWD.PACK PO (09:36)
[2021-06-27] MEDS: MINERAL OIL/WHITE PETROLATUM OINTMENT 1 APPLIC EACH EYE ×2 (09:36→19:57)
--- NOTE | 2021-06-27 10:47 | WPDINTPN ---
Progress Note: A&P Assessment and Plan (1) Acute respiratory failure: Code(s): J96.00 - Acute respiratory failure, unspecified whether with hypoxia or hypercapnia Status: Acute Assessment and Plan: Patient presented with sudden onset of shortness of breath on 06/23/2021 to the ED. She was found to have O2 sats in the 70s, placed on BiPAP / at 100% with some improvement. Upon arrival to the ICU patient was breathing 40-50 times a minute, in significant respiratory distress, impending respiratory failure. Patient was intubated. She was difficult to bag, stat chest x-ray was done that showed and ETT was in the right mainstem bronchus, once ETT was withdrawn and the correct position, bagging was easier but patient's O2 sats remained low. Patient was placed in prone position and started on Flolan with improvement in her O2 sats. She was on 14 of PEEP 100% FiO2. Eventually patient's FiO2 doing approved and it was down to 65% on 06/26. Nimbex infusion was discontinued - 06/27 overnight her oxygen requirement had increased and she was at 100% and 12 of PEEP this morning -on review of ventilator patient did had asynchrony with the ventilator -ABG also shows worsening hypercarbia along with hypoxia -I have restarted patient on Nimbex infusion after bolus -continue current CMV mode of ventilation, rate of 28, peep of 12, 100% % FiO2, wean FiO2 to maintain O2 sats greater than 92% -chest x-ray reviewed -Sedated with fentanyl, Versed infusions. Continue Nimbex infusion for neuromuscular blockade and ventilator synchrony (2) Septic shock: Code(s): A41.9 - Sepsis, unspecified organism; R65.21 - Severe sepsis with septic shock Status: Acute Assessment and Plan: patient presented with systolic blood pressure in the ED of 60s, was given 2 L IV fluid bolus, additional 500 mL IV fluid bolus was given in the ICU - right IJ central line was inserted in the ER due to peripheral venous insufficiency -continue Levophed, will maintain MAP > 65 mmHg for adequate end organ perfusion -continue stress dose hydrocortisone -WBC count trending down, lactate remains normal -will add 25% albumin (3) Pneumonia: Code(s): J18.9 - Pneumonia, unspecified organism Status: Acute Assessment and Plan: Chest CTA on 05/26/2021: Diffuse lung disease left greater than right consistent with pneumonia/or pulmonary edema. No definite pulmonary embolism, changes of the lungs suggestive of usual interstitial pneumonia. Chest CT 06/25 IMPRESSION: 1. Interval improvement in diffuse groundglass opacities throughout both lungs with left side predominance consistent with improving pulmonary edema or pneumonia. 2. No significant change in chronic asymmetric right-sided bronchiectasis and peripheral honeycombing of indeterminate etiology. 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 3. Small left pleural effusion. -COVID PCR and influenza were negative - 06/23: blood cultures negative x2 so for - 06/23: Urine culture growing E coli - Pneumococcal urine antigen was positive Patient was started on vancomycin, levofloxacin and cefepime 06/23/2021. Patient has underlying bronchiectasis and interstitial lung disease. She is also on chronic steroid. Interstitial lung disease could be secondary to arthritis The right-sided lung disease could be secondary to history of radiation for her right-sided breast cancer Despite that her picture fits with sepsis and infective etiology in the light of high WBC, septic shock, high CRP, positive pneumococcal antigen in the urine Case discussed with Pulmonary. Continue antibiotics and current dose of steroids and hold further increasing the steroid does Dr. Sharif will order serologies for additional workup (4) UTI (urinary tract infection): Code(s): N39.0 - Urinary tract infection, site not specified Status: Acute Assessment
--- NOTE | 2021-06-27 11:50 | PCNFU ---
Nutrition Follow-Up Complete: Inadequate Oral Intake as related to mechanical vent as evidenced by NPO. goal: Meet estimated nutritional needs Patient has limited progress towards goal. We will continue current goal. Pt current nutrition is Vital AF 1.2. Last recorded weight is 59.7 kg, down from 60.8 kg on admit. Bowel Motility:No BM reported. Labs Reviewed:BUN 21, ALb 2.7,Hct 31.6,Hgb 9.5 Meds Noted:Dulcolax Suppository, Miralax, Reglan, Versed, Fentanyl, Vancomycin, Levophed, Atrovent, Protonix, Nimbex, Synthroid. Skin: maceration-buttock Additional Notes: Patient remains on mechanical vent. Tube feedings of Vital AF 1.2 on hold due to elevated residuals. Reglan, Miralax and Dulcolax Suppository have been started. Recommend tube feeding goal rate at 50 ml/hr over 22 hours providing 1320 kcals/82 gms protein/892 ml water. Free water flush 30 ml q 4 hours. Agree with diet orders. Monitoring: Will monitor in ICU rounds and reassessing every Saturday and Saturday.
[2021-06-27] MEDS: ALBUMIN HUMAN 25% 25 GM/100 ML 100 ML IVPB ×3 (12:15→23:39)
[2021-06-27 12:31] LABS: Glucose Point of Care 144 mg/dl (65-105)
[2021-06-27 12:53] LABS: Creatine Kinase 27 U/L (30-135)
[2021-06-27 13:13] LABS: Rheumatoid Factor 62.8 IU/ML (<12)
[2021-06-27] MEDS: NOREPINEPHRINE 8 MG/D5W 250 ML 8 MG/250 ML BAG 15 MG IV CONT (15:49)
[2021-06-27 18:20] LABS: Glucose Point of Care 133 mg/dl (65-105)
[2021-06-28] VITALS (64 sets, daily range): BP systolic 95–146; BP diastolic 50–78; PULSE 64–104; RESP 25–28; TEMP 36.2–37.2; O2SAT 28–96
[2021-06-28] MEDS: METOCLOPRAMIDE HCL INJ 10 MG/2 ML VIAL IV PUSH ×5 (00:41→23:19)
[2021-06-28 00:54] LABS: Glucose Point of Care 101 mg/dl (65-105)
[2021-06-28] MEDS: FENTANYL 2,500MCG/NS250ML(*CRX 2,500 MCG/250 ML BAG 20 MCG IV CONT ×2 (01:57→14:29)
[2021-06-28] MEDS: CISATRACURIUM BESYLATE 200 MG in DEXTROSE 5% 80 ML 8.06 ML IV CONT (01:57)
[2021-06-28] MEDS: IPRATROPIUM BR 0.02% INH SOLN 0.5 MG/2.5 ML VIAL INHALATION ×4 (02:19→20:29)
[2021-06-28] MEDS: ALBUTEROL SULFATE NEB 2.5 MG/0.5 ML INH INHALATION ×4 (02:19→20:29)
[2021-06-28 03:35] LABS: Basophils Percent Auto 0.1 % (0.2-1.2); Hematocrit 24.7 % (37.0-47.0); Hemoglobin 7.4 g/dL (12.0-15.0); Immature Granulocyte Absolute 0.27 K/mm3 (0.00-0.031); Immature Granulocyte Percent A 1.8 % (0-0.5); Lymphocytes Absolute Auto 0.69 K/mm3 (0.9-3.2); Lymphocytes Percent Auto 4.5 % (18.3-44.2); Mean Corpuscular Hemoglobin 31.4 pg (26-34); Mean Corpuscular Volume 104.7 fl (80-100); Mean Platelet Volume 10.8 fl (7.4-10.4); Monocytes Absolute Auto 0.8 K/mm3 (0.1-0.6); Monocytes Percent Auto 5.3 % (2.6-8.5); Neutrophils Absolute Auto 13.5 K/mm3 (1.3-6.7); Neutrophils Percent Auto 88.3 % (45.5-73.1); Platelet Count Result 106 k/mm3 (150-375); Red Blood Count 2.36 M/mm3 (4.2-5.4); Red Cell Distribution Width 16.5 % (11.5-14.5); White Blood Count 15.3 K/mm3 (4.5-10.0)
[2021-06-28 03:44] LABS: Alanine Aminotransferase 10 U/L (4-35); Albumin Level 3.4 g/dL (3.5-5.1); Alkaline Phosphatase 42 U/L (38-126); Anion Gap 6 mmol/L (8-16); Aspartate Amino Transferase 15 U/L (14-36); Bilirubin,Total 0.9 mg/dL (0.2-1.3); Blood Urea Nitrogen 20 mg/dL (7-17); Calcium 9.6 mg/dL (8.4-10.2); Carbon Dioxide 33 mmol/L (22-30); Chloride 104 mmol/L (98-107); Estimated Glomerular Filt Rate > 60; Glucose 74 mg/dL (65-110); Magnesium 1.7 mg/dL (1.6-2.3); Potassium 2.9 mmol/L (3.4-5.0); Sodium 143 mmol/L (137-145)
[2021-06-28 03:45] LABS: Phosphorus < 1.0 mg/dL (2.5-4.5)
[2021-06-28 04:05] LABS: Vancomycin Trough 18.6 ug/mL (10.0-20.0)
[2021-06-28] MEDS: CENTRAL LINE FLUSH 10 ML IV PUSH ×3 (05:02→20:08)
[2021-06-28] MEDS: LEVOTHYROXINE SODIUM 50 MCG TABLET PO (05:03)
[2021-06-28] MEDS: ALBUMIN HUMAN 25% 25 GM/100 ML 100 ML IVPB ×4 (05:03→23:14)
[2021-06-28] MEDS: HYDROCORTISONE SODIUM SUCCINATE 100 MG/2 ML VIAL IV PUSH ×3 (05:03→22:10)
[2021-06-28 05:17] LABS: Alveolar/Arterial O2 Gradient 380.2 mmHg; Base Excess ABG 11.4 mEq/l (+/-2.0); Carboxyhemoglobin 0.3 % THb (0-2.0); Fractional Inspired Oxygen 70 %; HCO3 ABG 34.9 mEq/l (22.0-26.0); Methemoglobin ABG 0.3 %THb (0-1.5); Oxygen Content ABG 13.3 %vol (16.0-22.0); Oxygen Saturation ABG 96.3 % (95.0-100.0); Oxyhemoglobin 95.7 % THb (90.0-100.0); PCO2 ABG 41.7 mmHg (35.0-45.0); PO2 ABG 74.1 mmHg (80.0-100.0); PO2 FiO2 Ratio Arterial Blood 1.06 %; Reduced Hemoglobin 3.7 %THb (0-5.0); Total Hemoglobin 9.8 g/dL (12.0-18.0)
[2021-06-28 05:18] LABS: Device VENTILATOR; Site Drawn ARTLINE; pH ABG 7.541 (7.350-7.450)
[2021-06-28 05:19] LABS: Arterial Blood Gas PEEP 12 cmH2O; Arterial Blood Gas Tidal Volume 320 ml; Arterial Blood Gas Vent Mode CMV; Arterial Blood Gas Ventilator rate 28 /MIN
[2021-06-28] MEDS: MIDAZOLAM 100MG/NS 100ML(*CRX) 100 MG/100 ML BAG 10 MG IV CONT ×2 (05:53→16:28)
[2021-06-28] MEDS: DORNASE ALFA INH SOLN 1 MG/ML 2.5 ML AMP 2.5 MG INHALATION ×2 (07:39→20:29)
[2021-06-28] MEDS: DOCUSATE SODIUM LIQ 100 MG/10 ML UDC PO ×2 (08:19→20:07)
[2021-06-28] MEDS: MINERAL OIL/WHITE PETROLATUM OINTMENT 1 APPLIC EACH EYE ×2 (08:20→20:07)
--- NOTE | 2021-06-28 08:20 | PM.IMPN ---
Progress Note: A&P Assessment and Plan (1) Acute respiratory failure: Code(s): J96.00 - Acute respiratory failure, unspecified whether with hypoxia or hypercapnia Status: Acute Assessment and Plan: Patient presented with sudden onset of shortness of breath on 06/23/2021 to the ED. she was found to have O2 sats in the 70s, placed on BiPAP 12/5 at 100% with some improvement. upon arrival to the ICU patient was breathing 40-50 times a minute, in significant respiratory distress, impending respiratory failure. Rate decided to intubate the patient. intubation was uneventful, was difficult to bag the patient, stat chest x-ray was done that showed and ETT was in the right mainstem bronchus, once ETT was withdrawn and the correct position, bagging was easier but patient's O2 sats remained low. Patient was placed in prone position and started on Flolan with improvement in her O2 sats -Will follow - Intubated requiring paralytic due to vent asynchrony --Management per ICU (2) Septic shock: Code(s): A41.9 - Sepsis, unspecified organism; R65.21 - Severe sepsis with septic shock Status: Acute Assessment and Plan: patient presented with systolic blood pressure in the ED of 60s, was given 2 L IV fluid bolus, additional 500 mL IV fluid bolus was given in the ICU - right IJ central line was inserted in the ER due to peripheral venous insufficiency -continue Levophed, will maintain MAP > 65 mmHg for adequate end organ perfusion -continue vancomycin, levofloxacin and cefepime 06/23/2021. - 06/23: blood cultures negative x2 so for - 06/23: Urine culture growing E coli -Leukocytosis worsening (3) Pneumonia: Code(s): J18.9 - Pneumonia, unspecified organism Status: Acute Assessment and Plan: - Continue antibiotics as noted above - Pneumococcal urine antigen was positive Chest CTA on 05/26/2021: Diffuse lung disease left greater than right consistent with pneumonia/or pulmonary edema. No definite pulmonary embolism, changes of the lungs suggestive of usual interstitial pneumonia. (4) UTI (urinary tract infection): Code(s): N39.0 - Urinary tract infection, site not specified Status: Acute Assessment and Plan: 325 urine cultures growing E coli pansensitive except cefazolin. Abx as noted above. (5) Hypothyroidism: Code(s): E03.9 - Hypothyroidism, unspecified Status: Chronic Assessment and Plan: Continue levothyroxine (6) Essential hypertension: Code(s): I10 - Essential (primary) hypertension Status: Chronic Assessment and Plan: Holding due to septic shock on pressor. (7) Depression: Code(s): F32.A - Depression, unspecified Status: Chronic Assessment and Plan: On duloxetine at home. will hold for now (8) Osteoarthritis: Code(s): M19.90 - Unspecified osteoarthritis, unspecified site Status: Chronic Assessment and Plan: Pt is on chronic prednisone at home for osteoarthritis/rheumatoid arthritis -have placed patient on stress dose steroids (9) Hyperglycemia: Code(s): R73.9 - Hyperglycemia, unspecified Status: Acute Assessment and Plan: Continue Accu-Cheks and sliding scale insulin. (10) DVT prophylaxis: Code(s): Z29.9 - Encounter for prophylactic measures, unspecified Status: Acute Assessment and Plan: Prophylactic Lovenox SQ Subjective Date/time seen: 06/28/21 08:20 Exam Narrative: GENERAL: sedated lying in bed HEENT: Normocephalic, atraumatic, nares clear NECK: Supple w/ central line CV: Normal S1, S2, RRR, No MRG RESP: CTAB, Normal work of breathing. Abdomen: Soft, non-tender, non-distended, +BS EXTREMITIES: Warm and well perfused, no clubbing, cyanosis, or edema. SKIN: warm, dry and intact. NEURO:GCS3T - intubated and sedated Objective Data Vital Signs Vital Signs: Vital Signs - 24 hr 06/27/21 08:40
[2021-06-28] MEDS: polyethylene glycoL 3350 17 GM POWD.PACK PO (08:21)
[2021-06-28] MEDS: PANTOPRAZOLE SODIUM IV 40 MG VIAL IV PUSH (08:21)
[2021-06-28] MEDS: MAGNESIUM SULF 1 GM/D5W 100 ML 1 GM/100 ML BAG IVPB (09:55)
--- NOTE | 2021-06-28 09:56 | WPDINTPN ---
Progress Note: A&P Assessment and Plan (1) Acute respiratory failure: Code(s): J96.00 - Acute respiratory failure, unspecified whether with hypoxia or hypercapnia Status: Acute Assessment and Plan: Patient presented with sudden onset of shortness of breath on 06/23/2021 to the ED. She was found to have O2 sats in the 70s, placed on BiPAP / at 100% with some improvement. Upon arrival to the ICU patient was breathing 40-50 times a minute, in significant respiratory distress, impending respiratory failure. Patient was intubated. She was difficult to bag, stat chest x-ray was done that showed and ETT was in the right mainstem bronchus, once ETT was withdrawn and the correct position, bagging was easier but patient's O2 sats remained low. Patient was placed in prone position and started on Flolan with improvement in her O2 sats. She was on 14 of PEEP 100% FiO2. Eventually patient's FiO2 doing approved and it was down to 65% on 06/26. Nimbex infusion was discontinued - 06/27 overnight her oxygen requirement had increased and she was at 100% and 12 of PEEP this morning. Nimbex was restarted -ABG and chest x-ray reviewed -decrease tidal volume to 300 and rate to 25. Continue wean FiO2 which is a 70% -Sedated with fentanyl, Versed infusions. Continue Nimbex infusion for neuromuscular blockade and ventilator synchrony (2) Septic shock: Code(s): A41.9 - Sepsis, unspecified organism; R65.21 - Severe sepsis with septic shock Status: Acute Assessment and Plan: patient presented with systolic blood pressure in the ED of 60s, was given 2 L IV fluid bolus, additional 500 mL IV fluid bolus was given in the ICU - right IJ central line was inserted in the ER due to peripheral venous insufficiency -Levophed has been weaned, will maintain MAP > 65 mmHg for adequate end organ perfusion -continue stress dose hydrocortisone -WBC count trending down, lactate remains normal -continue 25% albumin - (3) Pneumonia: Code(s): J18.9 - Pneumonia, unspecified organism Status: Acute Assessment and Plan: Chest CTA on 05/26/2021: Diffuse lung disease left greater than right consistent with pneumonia/or pulmonary edema. No definite pulmonary embolism, changes of the lungs suggestive of usual interstitial pneumonia. Chest CT 06/25 IMPRESSION: 1. Interval improvement in diffuse groundglass opacities throughout both lungs with left side predominance consistent with improving pulmonary edema or pneumonia. 2. No significant change in chronic asymmetric right-sided bronchiectasis and peripheral honeycombing of indeterminate etiology. 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 3. Small left pleural effusion. -COVID PCR and influenza were negative - 06/23: blood cultures negative x2 so for - 06/23: Urine culture growing E coli - Pneumococcal urine antigen was positive Patient was started on vancomycin, levofloxacin and cefepime 06/23/2021. Patient has underlying bronchiectasis and interstitial lung disease. She is also on chronic steroid. Interstitial lung disease could be secondary to arthritis The right-sided lung disease could be secondary to history of radiation for her right-sided breast cancer Despite that her picture fits with sepsis and infective etiology in the light of high WBC, septic shock, high CRP, positive pneumococcal antigen in the urine Case discussed with Pulmonary. Continue antibiotics and current dose of steroids and hold further increasing the steroid does Dr. Sharif will order serologies for additional workup (4) UTI (urinary tract infection): Code(s): N39.0 - Urinary tract infection, site not specified Status: Acute Assessment and Plan: 06/23 urine cultures growing E coli which is pansensitive I will continue antibiotics as above (5) Hypothyroidism: Code(s): E03.9 - Hypothyroidism, unspecified Statu
--- NOTE | 2021-06-28 09:58 | PM.PNPUL ---
Progress Note: A&P Assessment and Plan (1) Pneumonia: Code(s): J18.9 - Pneumonia, unspecified organism Status: Acute Assessment and Plan: 06/27 Patient presents with 1 day acute onset shortness of breath, leukocytosis, lactic acidosis, shock and hypoxemic respiratory failure requiring intubation with CT scan showing diffuse interstitial and alveolar infiltrates. COVID in influenza test negative. Patient has strep pneumonia urine antigen positivity. Overall the clinical picture is more consistent with bacterial infection than viral infection, opportunistic infection, exacerbation of her interstitial lung disease or vasculitis from a connective tissue disorder. Patient currently on vancomycin, cefepime and Levaquin for bacterial infection. I agree with his current regimen. I will send a multiplex nasal swab before additional respiratory pathogens. 06/28 patient being treated for streptococcal pneumonia an E coli UTI with vancomycin, cefepime and Levaquin. Patient is off of Levophed oxygenation has improved and chest x-ray is improving. Viral swab for extended respiratory pathogens is pending. At this time agree with continued treatment for streptococcal pneumonia. Ventilator managed by gas dispatcher. (2) Rheumatoid arthritis: Code(s): M06.9 - Rheumatoid arthritis, unspecified Status: Acute Assessment and Plan: 06/27 Patient carries a diagnosis of rheumatoid arthritis on prednisone 20 mg a day. I will send serologies for rheumatoid arthritis as well as other connective tissue disorders including rheumatoid factor, anti CCP, BRIANA screen including 11 auto antibodies, Anca screen, hypersensitivity pneumonitis, CPK and aldolase levels. Given the likely diagnosis of pneumonia with septic shock I would avoid higher doses of steroids at this time. Currently she is on Solu-Cortef 100 mg IV q.8 hours. 06/28 Improved hemodynamics, oxygenation, leukocytosis and chest x-ray with treatment for bacterial infection. She does have an elevated rheumatoid factor at 62.8. I am not convinced this is an acute exacerbation of rheumatoid lung and at this time I would not give her additional steroids. I would continue Solu-Cortef 100 mg IV q.8 and wean as tolerated now that she is off Levophed. Discussed with Dr. Dillard. Will follow with you. Subjective Date/time seen: 06/28/21 09:58 Interval history: 06/27/2021, this is a new pulmonary consult for hypoxic respiratory failure and chronic lung disease 60 year old with ILD dating back to CT scan abdomen 08/03/2015, hypothyroidism, essential hypertension, osteoarthritis of the knees bilaterally, rheumatoid arthritis in chart home medicines include prednisone 20 a day, patient is bed-bound as she cannot walk due to the pain, history of pneumonia bilaterally in 2016, breast CA in 2004 status post radiation. per the family patient is a never smoker and does not have any history of COPD or heart disease, history of depression presented the ED on 06/23/2021 with complains of sudden onset of shortness of breath that started on the morning of admission. Patient has not received a COVID vaccine. Patient had a leukocytosis of 39,000, a positive D-dimer, hypoxemic respiratory failure with a blood gas of 7.36/37/79 on BiPAP 100% 03/05, a lactic acidosis with shock requiring Levophed and respiratory failure requiring intubation. she was influenza and COVID negative. Patient is subsequently tested positive for urine pneumococcal antigen. CT scan on 06/25/2021 demonstrated improvement in diffuse alveolar infiltrates compared with 06/23/2021. Of note the patient on 06/25 was on peep of 12 and was not intubated on 06/23. On 06/26 patient's FiO2 had improved to 65% and the paralytics were discontinued but overnight the patient had worsening hypoxemia requiring FiO2 100% and the patient was reparalyzed. No history of hemoptysis. 06/27 Patient remains in hypoxic respiratory failure requir
[2021-06-28] MEDS: POTASSIUM CHLORIDE 20 MEQ PACKET (FOR LIQUID) 40 MEQ FEED TUBE (10:13)
[2021-06-28] MEDS: POTASSIUM PHOS,M-BASIC-D-BASIC 40 MMOL in SODIUM CHLORIDE 0.9% IV 250 ML 43.89 MMOL IVPB (10:39)
--- NOTE | 2021-06-28 12:03 | PCFNICU ---
ICU Rounding Note: Pt current nutrition is Vital AF 1.2 at 20ml/hr over 22 hours. Last recorded weight is 63.4 kg, up from 60.8 kg on admit. Bowel Motility:No BM reported. Labs Reviewed:Cr 0.6,K 2.9, BUN 20, Alb 3.4,Hgb 7.4,Hct 24.7 Meds Noted:Versed, Fentanyl, Nimbex, Colace, Miralax, Dulcolax Suppository, Solu-Cortef,Atrovent,Levaquin, Lovenox,Synthroid,Levophed, Protonix, Vancomycin. Skin: maceration-buttock Additional Notes: Patient remains on CMV mode with mechanical vent. Tube feedings restarting with Vital AF 1.2 at 20ml/hr. Residuals improving today, 180 per nursing documentation. Agree with diet orders. Following daily in ICU rounds. Will monitor weight,BM, labs, skin and tube feeding tolerance every Saturday and Saturday..
[2021-06-28 12:06] LABS: Glucose Point of Care 102 mg/dl (65-105)
[2021-06-28] MEDS: CISATRACURIUM BESYLATE 200 MG in DEXTROSE 5% 80 ML 8.96 ML IV CONT (14:03)
[2021-06-28 17:26] LABS: Glucose Point of Care 72 mg/dl (65-105)
[2021-06-28 18:39] LABS: Glucose Point of Care 81 mg/dl (65-105)
--- NOTE | 2021-06-28 21:34 | PM.IMPN ---
Progress Note: A&P Assessment and Plan (1) Acute respiratory failure: Code(s): J96.00 - Acute respiratory failure, unspecified whether with hypoxia or hypercapnia Status: Acute Assessment and Plan: Patient presented with sudden onset of shortness of breath on 06/23/2021 to the ED. she was found to have O2 sats in the 70s, placed on BiPAP / at 100% with some improvement. upon arrival to the ICU patient was breathing 40-50 times a minute, in significant respiratory distress, impending respiratory failure. Rate decided to intubate the patient. intubation was uneventful, was difficult to bag the patient, stat chest x-ray was done that showed and ETT was in the right mainstem bronchus, once ETT was withdrawn and the correct position, bagging was easier but patient's O2 sats remained low. Patient was placed in prone position and started on Flolan with improvement in her O2 sats -Will follow -Off pressors and appears overall clinically improved --Management per ICU (2) Septic shock: Code(s): A41.9 - Sepsis, unspecified organism; R65.21 - Severe sepsis with septic shock Status: Acute Assessment and Plan: patient presented with systolic blood pressure in the ED of 60s, was given 2 L IV fluid bolus, additional 500 mL IV fluid bolus was given in the ICU - right IJ central line was inserted in the ER due to peripheral venous insufficiency -continue Levophed, will maintain MAP > 65 mmHg for adequate end organ perfusion -continue vancomycin, levofloxacin and cefepime 06/23/2021. - 06/23: blood cultures negative x2 so for - 06/23: Urine culture growing E coli -Leukocytosis improved today. (3) Pneumonia: Code(s): J18.9 - Pneumonia, unspecified organism Status: Acute Assessment and Plan: - Continue antibiotics as noted above - Pneumococcal urine antigen was positive Chest CTA on 05/26/2021: Diffuse lung disease left greater than right consistent with pneumonia/or pulmonary edema. No definite pulmonary embolism, changes of the lungs suggestive of usual interstitial pneumonia. (4) UTI (urinary tract infection): Code(s): N39.0 - Urinary tract infection, site not specified Status: Acute Assessment and Plan: 325 urine cultures growing E coli pansensitive except cefazolin. Abx as noted above. (5) Hypothyroidism: Code(s): E03.9 - Hypothyroidism, unspecified Status: Chronic Assessment and Plan: Continue levothyroxine (6) Essential hypertension: Code(s): I10 - Essential (primary) hypertension Status: Chronic Assessment and Plan: Holding due to septic shock on pressor. (7) Depression: Code(s): F32.A - Depression, unspecified Status: Chronic Assessment and Plan: On duloxetine at home. will hold for now (8) Osteoarthritis: Code(s): M19.90 - Unspecified osteoarthritis, unspecified site Status: Chronic Assessment and Plan: Pt is on chronic prednisone at home for osteoarthritis/rheumatoid arthritis -have placed patient on stress dose steroids (9) Hyperglycemia: Code(s): R73.9 - Hyperglycemia, unspecified Status: Acute Assessment and Plan: Continue Accu-Cheks and sliding scale insulin. (10) DVT prophylaxis: Code(s): Z29.9 - Encounter for prophylactic measures, unspecified Status: Acute Assessment and Plan: Prophylactic Lovenox SQ Subjective Date/time seen: Date of Service 06/28/21 at 1045 Patient intubated and sedated. Review of Systems Review of Systems: ROS unobtainable: Yes unobtainable due to endotracheal tube and unobtainable due to medical condition Exam Narrative: GENERAL: sedated lying in bed HEENT: Normocephalic, atraumatic, nares clear NECK: Supple w/ central line CV: Normal S1, S2, RRR, No MRG RESP: CTAB, Normal work of breathing. Abdomen: Soft, non-tender, non-distended, +BS EXTREMITIES: Warm and
[2021-06-29] VITALS (39 sets, daily range): BP systolic 86–160; BP diastolic 45–90; PULSE 68–121; RESP 25; TEMP 35.8–36.7; O2SAT 91–97
[2021-06-29 00:33] LABS: Glucose Point of Care 95 mg/dl (65-105)
[2021-06-29] MEDS: ALBUTEROL SULFATE NEB 2.5 MG/0.5 ML INH INHALATION ×3 (01:57→13:20)
[2021-06-29] MEDS: IPRATROPIUM BR 0.02% INH SOLN 0.5 MG/2.5 ML VIAL INHALATION ×3 (01:57→13:20)
[2021-06-29] MEDS: CISATRACURIUM BESYLATE 200 MG in DEXTROSE 5% 80 ML 8.96 ML IV CONT ×2 (02:12→12:30)
[2021-06-29] MEDS: MIDAZOLAM 100MG/NS 100ML(*CRX) 100 MG/100 ML BAG 10 MG IV CONT ×2 (02:14→12:42)
[2021-06-29] MEDS: FENTANYL 2,500MCG/NS250ML(*CRX 2,500 MCG/250 ML BAG 20 MCG IV CONT (02:54)
[2021-06-29] MEDS: ALBUMIN HUMAN 25% 25 GM/100 ML 100 ML IVPB (05:06)
[2021-06-29] MEDS: CENTRAL LINE FLUSH 10 ML IV PUSH (05:07)
[2021-06-29] MEDS: METOCLOPRAMIDE HCL INJ 10 MG/2 ML VIAL IV PUSH ×2 (05:07→12:29)
[2021-06-29] MEDS: HYDROCORTISONE SODIUM SUCCINATE 100 MG/2 ML VIAL IV PUSH (05:07)
[2021-06-29] MEDS: LEVOTHYROXINE SODIUM 50 MCG TABLET PO (05:07)
[2021-06-29 05:43] LABS: Hematocrit 22.6 % (37.0-47.0); Mean Corpuscular HGB Conc 30.1 g/dl (32-36); Mean Corpuscular Hemoglobin 31.1 pg (26-34); Mean Corpuscular Volume 103.2 fl (80-100); Mean Platelet Volume 9.8 fl (7.4-10.4); Platelet Count Result 85 k/mm3 (150-375); Red Blood Count 2.19 M/mm3 (4.2-5.4); Red Cell Distribution Width 16.3 % (11.5-14.5); White Blood Count 13.7 K/mm3 (4.5-10.0)
[2021-06-29 05:46] LABS: Hemoglobin 6.8 g/dL (12.0-15.0)
[2021-06-29 05:46] LABS: Alveolar/Arterial O2 Gradient 392.7 mmHg; Base Excess ABG 5.7 mEq/l (+/-2.0); Carboxyhemoglobin 0.3 % THb (0-2.0); Device VENTILATOR; Fractional Inspired Oxygen 70 %; HCO3 ABG 30.3 mEq/l (22.0-26.0); Methemoglobin ABG 0.2 %THb (0-1.5); Oxygen Content ABG 10.2 %vol (16.0-22.0); Oxygen Saturation ABG 91.1 % (95.0-100.0); Oxyhemoglobin 89.1 % THb (90.0-100.0); PCO2 ABG 44.9 mmHg (35.0-45.0); PO2 ABG 58.1 mmHg (80.0-100.0); PO2 FiO2 Ratio Arterial Blood 0.83 %; Reduced Hemoglobin 10.4 %THb (0-5.0); Site Drawn ARTLINE; Total Hemoglobin 8.1 g/dL (12.0-18.0); pH ABG 7.447 (7.350-7.450)
[2021-06-29 05:47] LABS: Arterial Blood Gas PEEP 12 cmH2O; Arterial Blood Gas Tidal Volume 300 ml; Arterial Blood Gas Vent Mode CMV; Arterial Blood Gas Ventilator rate 25 /MIN
[2021-06-29 05:54] LABS: Alanine Aminotransferase 10 U/L (4-35); Albumin Level 4.2 g/dL (3.5-5.1); Alkaline Phosphatase 34 U/L (38-126); Anion Gap 7 mmol/L (8-16); Aspartate Amino Transferase 22 U/L (14-36); Bilirubin,Total 0.7 mg/dL (0.2-1.3); Blood Urea Nitrogen 28 mg/dL (7-17); Calcium 9.7 mg/dL (8.4-10.2); Carbon Dioxide 32 mmol/L (22-30); Chloride 102 mmol/L (98-107); Estimated Glomerular Filt Rate > 60; Glucose 92 mg/dL (65-110); Magnesium 1.8 mg/dL (1.6-2.3); Phosphorus 2.8 mg/dL (2.5-4.5); Potassium 3.7 mmol/L (3.4-5.0); Sodium 141 mmol/L (137-145)
--- NOTE | 2021-06-29 07:43 | PM.IMPN ---
Progress Note: A&P Assessment and Plan (1) Acute respiratory failure: Code(s): J96.00 - Acute respiratory failure, unspecified whether with hypoxia or hypercapnia Status: Acute Assessment and Plan: Patient presented with sudden onset of shortness of breath on 06/23/2021 to the ED. she was found to have O2 sats in the 70s, placed on BiPAP / at 100% with some improvement. upon arrival to the ICU patient was breathing 40-50 times a minute, in significant respiratory distress, impending respiratory failure. Rate decided to intubate the patient. intubation was uneventful, was difficult to bag the patient, stat chest x-ray was done that showed and ETT was in the right mainstem bronchus, once ETT was withdrawn and the correct position, bagging was easier but patient's O2 sats remained low. Patient was placed in prone position and started on Flolan with improvement in her O2 sats -Will follow -Off pressors all yesterday and improving leukocytosis --Management per ICU (2) Septic shock: Code(s): A41.9 - Sepsis, unspecified organism; R65.21 - Severe sepsis with septic shock Status: Acute Assessment and Plan: patient presented with systolic blood pressure in the ED of 60s, was given 2 L IV fluid bolus, additional 500 mL IV fluid bolus was given in the ICU - right IJ central line was inserted in the ER due to peripheral venous insufficiency -continue Levophed, will maintain MAP > 65 mmHg for adequate end organ perfusion -continue vancomycin, levofloxacin and cefepime 06/23/2021. - 06/23: finalized negative - 06/23: Urine culture growing E coli -06/25: Sputum cx finalized with no growth -Leukocytosis improved today. (3) Pneumonia: Code(s): J18.9 - Pneumonia, unspecified organism Status: Acute Assessment and Plan: - Continue antibiotics as noted above - Pneumococcal urine antigen was positive Chest CTA on 05/26/2021: Diffuse lung disease left greater than right consistent with pneumonia/or pulmonary edema. No definite pulmonary embolism, changes of the lungs suggestive of usual interstitial pneumonia. (4) UTI (urinary tract infection): Code(s): N39.0 - Urinary tract infection, site not specified Status: Acute Assessment and Plan: 325 urine cultures growing E coli pansensitive except cefazolin. Abx as noted above. (5) Hypothyroidism: Code(s): E03.9 - Hypothyroidism, unspecified Status: Chronic Assessment and Plan: Continue levothyroxine (6) Essential hypertension: Code(s): I10 - Essential (primary) hypertension Status: Chronic Assessment and Plan: (7) Depression: Code(s): F32.A - Depression, unspecified Status: Chronic Assessment and Plan: On duloxetine at home. will hold for now (8) Osteoarthritis: Code(s): M19.90 - Unspecified osteoarthritis, unspecified site Status: Chronic Assessment and Plan: Pt is on chronic prednisone at home for osteoarthritis/rheumatoid arthritis -have placed patient on stress dose steroids (9) Hyperglycemia: Code(s): R73.9 - Hyperglycemia, unspecified Status: Acute Assessment and Plan: Continue Accu-Cheks and sliding scale insulin. (10) DVT prophylaxis: Code(s): Z29.9 - Encounter for prophylactic measures, unspecified Status: Acute Assessment and Plan: Prophylactic Lovenox SQ Subjective Date/time seen: Date of Service 06/29/21 07:43 Patient intubated and sedated. Review of Systems Review of Systems: ROS unobtainable: Yes unobtainable due to endotracheal tube and unobtainable due to medical condition Exam Narrative: GENERAL: NAD, cooperative HEENT: Normocephalic, atraumatic NECK: Supple CV: Normal S1, S2, RRR, No MRG RESP: Coarse breath sounds throughout. Abdomen: Soft, non-tender, non-distended, +BS EXTREMITIES: Warm and well perfused, no clubbing, cyanosis, o
[2021-06-29] MEDS: PANTOPRAZOLE SODIUM IV 40 MG VIAL IV PUSH (08:04)
[2021-06-29] MEDS: DOCUSATE SODIUM LIQ 100 MG/10 ML UDC PO (08:06)
[2021-06-29] MEDS: polyethylene glycoL 3350 17 GM POWD.PACK PO (08:06)
[2021-06-29] MEDS: MINERAL OIL/WHITE PETROLATUM OINTMENT 1 APPLIC EACH EYE (08:07)
[2021-06-29] MEDS: DORNASE ALFA INH SOLN 1 MG/ML 2.5 ML AMP 2.5 MG INHALATION (08:09)
--- NOTE | 2021-06-29 09:11 | PM.PNPUL ---
Progress Note: A&P Assessment and Plan (1) Pneumonia: Code(s): J18.9 - Pneumonia, unspecified organism Status: Acute Assessment and Plan: 06/27 Patient presents with 1 day acute onset shortness of breath, leukocytosis, lactic acidosis, shock and hypoxemic respiratory failure requiring intubation with CT scan showing diffuse interstitial and alveolar infiltrates. COVID in influenza test negative. Patient has strep pneumonia urine antigen positivity. Overall the clinical picture is more consistent with bacterial infection than viral infection, opportunistic infection, exacerbation of her interstitial lung disease or vasculitis from a connective tissue disorder. Patient currently on vancomycin, cefepime and Levaquin for bacterial infection. I agree with his current regimen. I will send a multiplex nasal swab before additional respiratory pathogens. 06/28 patient being treated for streptococcal pneumonia an E coli UTI with vancomycin, cefepime and Levaquin (started06/23). Patient is off of Levophed oxygenation has improved and chest x-ray is improving. Viral swab for extended respiratory pathogens is pending. At this time agree with continued treatment for streptococcal pneumonia. Ventilator managed by tire building supervisor. 06/29 patient remains intubated, sedated and paralyzed. She is on 75% FiO2 with peep of 12. Her blood gas this morning on 70% and a peep of 12 was 7.45/45/58. Her white blood cell count is 13.7. Creatinine is 0.7. Her peak airway pressure is 41. She remains on vanc, cefepime, Levaquin, hydrocortisone 100 IV q.8 hours. She has received adequate antibiotics for streptococcal pneumonia and E coli UTI since 06/23 and has minimal improvement and remains paralyzed on 75% FiO2 and peep of 12. I am concerned there is an additional pulmonary process other than just pneumococcal pneumonia. Given her history of immunosuppression as well as rheumatoid arthritis she would benefit from a bronchoscopy to exclude opportunistic infection as well as alveolar hemorrhage, which I do not feel I can't perform safely (given her high FiO2, high peep and paralysis), as well as a rheumatology consultation which is not available at our facility. Recommend transfer to higher level [facility] at [facility] or [facility]. Discussed with tire building supervisor Dr. Dillard, who will initiate transfer. (2) Rheumatoid arthritis: Code(s): M06.9 - Rheumatoid arthritis, unspecified Status: Acute Assessment and Plan: 06/27 Patient carries a diagnosis of rheumatoid arthritis on prednisone 20 mg a day. I will send serologies for rheumatoid arthritis as well as other connective tissue disorders including rheumatoid factor, anti CCP, BRIANA screen including 11 auto antibodies, Anca screen, hypersensitivity pneumonitis, CPK and aldolase levels. Given the likely diagnosis of pneumonia with septic shock I would avoid higher doses of steroids at this time. Currently she is on Solu-Cortef 100 mg IV q.8 hours. 06/28 Improved hemodynamics, oxygenation, leukocytosis and chest x-ray with treatment for bacterial infection. She does have an elevated rheumatoid factor at 62.8. I am not convinced this is an acute exacerbation of rheumatoid lung and at this time I would not give her additional steroids. I would continue Solu-Cortef 100 mg IV q.8 and wean as tolerated now that she is off Levophed. 06/29 patient would benefit from rheumatology consult which is not available and we will initiate transfer to higher level of care. Will follow with you. Subjective Date/time seen: 06/29/21 09:11 Interval history: 06/27/2021, this is a new pulmonary consult for hypoxic respiratory failure and chronic lung disease 60 year old with ILD dating back to CT scan abdomen 08/03/2015, hypothyroidism, essential hypertension, osteoarthritis of the knees bilaterally, rheumatoid arthritis in chart home medicines include prednisone 20 a day, patient is
[2021-06-29] MEDS: POTASSIUM CHLORIDE 20 MEQ PACKET (FOR LIQUID) FEED TUBE (09:56)
[2021-06-29] MEDS: MAGNESIUM SULF 1 GM/D5W 100 ML 1 GM/100 ML BAG IVPB (09:56)
--- NOTE | 2021-06-29 10:08 | WPDINTPN ---
Progress Note: A&P Assessment and Plan (1) Acute respiratory failure: Code(s): J96.00 - Acute respiratory failure, unspecified whether with hypoxia or hypercapnia Status: Acute Assessment and Plan: Patient presented with sudden onset of shortness of breath on 06/23/2021 to the ED. She was found to have O2 sats in the 70s, placed on BiPAP 03/05 at 100% with some improvement. Upon arrival to the ICU patient was breathing 40-50 times a minute, in significant respiratory distress, impending respiratory failure. Patient was intubated. She was difficult to bag, stat chest x-ray was done that showed and ETT was in the right mainstem bronchus, once ETT was withdrawn and the correct position, bagging was easier but patient's O2 sats remained low. Patient was placed in prone position and started on Flolan with improvement in her O2 sats. She was on 14 of PEEP 100% FiO2. Eventually patient's FiO2 doing approved and it was down to 65% on 06/26. Nimbex infusion was discontinued - 06/27 overnight her oxygen requirement had increased and she was at 100% and 12 of PEEP this morning. Nimbex was restarted -ABG reviewed -continue tidal volume to 300 and rate to 25. Continue wean FiO2 which is a 70% -chest x-ray reviewed withdraw ET tube by 2 cm -Sedated with fentanyl, Versed infusions. Continue Nimbex infusion for neuromuscular blockade and ventilator synchrony (2) Septic shock: Code(s): A41.9 - Sepsis, unspecified organism; R65.21 - Severe sepsis with septic shock Status: Acute Assessment and Plan: Patient presented with systolic blood pressure in the ED of 60s, was given 2 L IV fluid bolus, additional 500 mL IV fluid bolus was given in the ICU - right IJ central line was inserted in the ER due to peripheral venous insufficiency -Levophed has been weaned, will maintain MAP > 65 mmHg for adequate end organ perfusion -continue stress dose hydrocortisone -WBC count trending down, lactate remains normal (3) Pneumonia: Code(s): J18.9 - Pneumonia, unspecified organism Status: Acute Assessment and Plan: Chest CTA on 05/26/2021: Diffuse lung disease left greater than right consistent with pneumonia/or pulmonary edema. No definite pulmonary embolism, changes of the lungs suggestive of usual interstitial pneumonia. Chest CT 06/25 IMPRESSION: 1. Interval improvement in diffuse groundglass opacities throughout both lungs with left side predominance consistent with improving pulmonary edema or pneumonia. 2. No significant change in chronic asymmetric right-sided bronchiectasis and peripheral honeycombing of indeterminate etiology. 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 3. Small left pleural effusion. -COVID PCR and influenza were negative - 06/23: blood cultures negative x2 so for - 06/23: Urine culture growing E coli - Pneumococcal urine antigen was positive Patient was started on vancomycin, levofloxacin and cefepime 06/23/2021. Patient has underlying bronchiectasis and interstitial lung disease. She is also on chronic steroid. Interstitial lung disease could be secondary to arthritis The right-sided lung disease could be secondary to history of radiation for her right-sided breast cancer Despite that her picture fits with sepsis and infective etiology in the light of high WBC, septic shock, high CRP, positive pneumococcal antigen in the urine Case discussed with Pulmonary. Continue antibiotics and current dose of steroids and hold further increasing the steroid does Dr. Sharif will order serologies for additional workup (4) UTI (urinary tract infection): Code(s): N39.0 - Urinary tract infection, site not specified Status: Acute Assessment and Plan: 06/23 urine cultures growing E coli which is pansensitive I will continue antibiotics as above (5) Hypothyroidism: Code(s): E03.9 - Hypothyroidism, unspecified
[2021-06-29] MEDS: SODIUM CHLORIDE 0.9% IV 250 ML 30 ML IV CONT (10:21)
--- NOTE | 2021-06-29 11:31 | PCFNICU ---
ICU Rounding Note: Pt current nutrition is Vital AF 1.2 at 20 ml/hr over 22 hours. Last recorded weight is 63.9 kg, up from 60.8 kg on admit. Bowel Motility:No BM reported. Labs Reviewed:BUN 28, Hct 22.6, Hgb 6.8 Meds Noted:Protonix,Levophed, Lovenox, Versed, Fentanyl, Reglan, Miralax, Atrovent, Nimbex, Synthroid, Vancomycin, Dulcolax Suppository. Skin: maceration-buttock Additional Notes: Patient remains on CMV mode. Tube feedings remain at Vital AF 1.2 at 20 ml/hr over 22 hours. Spoke with nursing today residuals at 275 ml. 30 ml free water flush. Recommend goal rate on tube feedings at 50 ml/hr. Agree with diet orders. Following daily in ICU rounds. Will monitor weight,BM, labs, skin and tube feeding tolerance every Saturday and Saturday.
--- NOTE | 2021-06-29 11:57 | PC.NURSE ---
Report called to Benedict Raza from [facility], [place], [place]
[2021-06-29 12:46] LABS: INR 1.3; Prothrombin Time 15.8 Seconds (11.1-14.7)
[2021-06-29 12:47] LABS: Partial Thromboplastin Time 24.1 SECONDS (22.3-36.8)
[2021-06-29 12:53] LABS: Fibrinogen 158 mg/dl (215-510)
[2021-06-29 13:04] LABS: Glucose Point of Care 105 mg/dl (65-105)
[2021-06-29 13:22] LABS: Procalcitonin 0.1 ng/mL
[2021-07-01 05:46] LABS: Aldolase 9.7 U/L (<=8.1)
[2021-07-01 10:25] LABS: Anti Cyclic Citrullinated Pept >250 Units (<20)
[2021-07-01 11:30] LABS: ANA Cascade Screen Negative (Negative)
[2021-07-01 12:14] LABS: ANCA Screen Negative (Negative)
--- NOTE | 2021-07-19 10:50 | PM.TDS ---
Transfer Discharge Sum: Prov Provider Date of admission: 06/23/21 09:58 Primary care physician: Jonathan Rivas, DO Admitting clinician: Juan Pablo Maloney MD Consults: 06/23/21 Wound/ET Consult Routine Reason for Consult:: pressure sores to buttock 06/23/21 09:35 Consult to Physician Routine Comment: Consulting Provider: Nicolas Chin phlebotomy specialist/MD group to consult: [email or web address] Reason for consultation: sepsis, pneumonia, respiratory failure Has provider been notified: Yes 06/27/21 Consult to Physician Routine Comment: Consulting Provider: Salvatore Sharif phlebotomy specialist/MD group to consult: Pulmonary Reason for consultation: ILD Has provider been notified: Yes DS: Admitting Diagnosis Discharge Date 06/29/21 Admitting Diagnosis Sepsis, septic shock, acute respiratory failure, pneumonia DS: Discharge Diagnosis Discharge Diagnosis (1) Pneumonia: Code(s): J18.9 - Pneumonia, unspecified organism Status: Acute (2) Acute respiratory failure: Code(s): J96.00 - Acute respiratory failure, unspecified whether with hypoxia or hypercapnia Status: Acute (3) Septic shock: Code(s): A41.9 - Sepsis, unspecified organism; R65.21 - Severe sepsis with septic shock Status: Acute (4) Sepsis: Code(s): A41.9 - Sepsis, unspecified organism Status: Acute Transfer Discharge Sum: Med Medications Active and Home Medications: Home Medications albuterol sulfate 2 puff INHALATION Q4H PRN 06/23/21 [History Confirmed 06/23/21] alendronate 35 mg PO WEEKLY 06/23/21 [History Confirmed 06/23/21] amlodipine 10 mg PO DAILY 06/23/21 [History Confirmed 06/23/21] duloxetine 60 mg PO DAILY 06/23/21 [History Confirmed 06/23/21] fluticasone propionate 1 spray INTRANASAL DAILY 06/23/21 [History Confirmed 06/23/21] levothyroxine 50 mcg PO DAILY 06/23/21 [History Confirmed 06/23/21] lisinopril 10 mg PO DAILY 06/23/21 [History Confirmed 06/23/21] meloxicam 15 mg PO DAILY 06/23/21 [History Confirmed 06/23/21] omeprazole 40 mg PO DAILY 06/23/21 [History Confirmed 06/23/21] prednisone 20 mg PO DAILY 06/23/21 [History Confirmed 06/23/21] tramadol 50 mg PO TID 06/23/21 [History Confirmed 06/23/21] Transfer Discharge Sum: Hosp Hospital Course Hospital course: 60-year-old female with history of hypothyroidism, essential hypertension, osteoarthritis of bilateral knees, patient is bed-bound as she cannot walk due to the pain, rheumatoid arthritis, history of pneumonia in 2015, breast CA in 2004 status post radiation, CT scan and chest x-ray in the past of show scarring of the lungs due to radiation on the right side. Patient presented the ED on 06/23/2021 with complains of sudden onset of shortness of breath that started on the morning of the admission, patient was placed on BiPAP, was significantly tachypneic in impending respiratory failure, was intubated on 06/23/2021 of to which she developed hypoxia, patient was started on Flolan, peep of 14, prone positioning. Patient has been chronically on prednisone for her osteoarthritis. Patient treated with cefepime, vancomycin and levofloxacin. Chest CT 06/25 noted interval improvement in diffuse groundglass opacities throughout both lungs with left side predominance consistent with improving pulmonary edema or pneumonia. No significant change in chronic asymmetric right-sided bronchiectasis and peripheral honeycombing of indeterminate etiology. 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 06/23 blood cultures negative x2. 06/23 urine culture grew E. coli that was pansensitve. Pneumococcal urine antigen was positive. With history of chronic steroid use, underlying chronic structural lung disease, Pulmonology was consulted recommended to continue treatment with antibiotics. Pulmonology noted adequate treatment of pneumonia and was concerned there was some other pulmonary process causing her
== END 2021-06-29 13:55 | disposition short-term general hospital (02) | DRG 870 ==
LOC: ANHED 09:44 → ANHICU 09:52
PROVIDERS: Emergency Medicine; Internal Medicine; Internal Medicine Pulmonary Disease; Nurse Practitioner; Admitting Provider Internal Medicine; Emergency Provider Emergency Medicine; PCP Student in an Organized Health Care Education/Training Program; Visit Provider Family Medicine
DX: A41.9 Sepsis, unspecified organism (principal); R65.21 Severe sepsis with septic shock; J18.9 Pneumonia, unspecified organism; J80 Acute respiratory distress syndrome; E87.2 Acidosis; N39.0 Urinary tract infection, site not specified; E03.9 Hypothyroidism, unspecified; F32.A Depression, unspecified; Z20.822 Contact with and (suspected) exposure to COVID-19; Z87.891 Personal history of nicotine dependence; Z79.899 Other long term (current) drug therapy; I10 Essential (primary) hypertension; Z29.9 Encounter for prophylactic measures, unspecified; J44.9 Chronic obstructive pulmonary disease, unspecified; D69.6 Thrombocytopenia, unspecified; Z74.01 Bed confinement status; M06.9 Rheumatoid arthritis, unspecified; M17.0 Bilateral primary osteoarthritis of knee; R73.9 Hyperglycemia, unspecified; B96.20 Unspecified Escherichia coli [E. coli] as the cause of diseases classified elsewhere; M25.411 Effusion, right shoulder; K59.00 Constipation, unspecified; B96.89 Other specified bacterial agents as the cause of diseases classified elsewhere; Z85.3 Personal history of malignant neoplasm of breast; Z92.21 Personal history of antineoplastic chemotherapy; Z92.3 Personal history of irradiation; Z90.11 Acquired absence of right breast and nipple
CPT/HCPCS: 31500; 36415; 36430; 36556; 36600; 71045; 71250; 71275; 74176; 80053; 80202; 81001; 82085; 82375; 82550; 82805; 82948; 83050; 83605; 83735; 83880; 84100; 84145; 84443; 84484; 85025; 85027; 85055; 85380; 85384; 85610; 85730; 86036; 86038; 86140; 86200; 86331; 86430; 86606; 86609; 86850; 86900; 86901; 86920; 87040; 87070; 87077; 87086; 87088; 87186; 87205; 87449; 87486; 87502; 87581; 87633; 87899; 93005; 93971; 94002; 94003; 94640; 96361; 96365; 96375; 99291; A9270; C1751; C8929; C9113; C9803; J0282; J0456; J0610; J0692; J0696; J1650; J1720; J1815; J1956; J2250; J2765; J2930; J3010; J3370; J3475; J7030; J7040; J7050; J7070; J7120; P9016; P9045; P9047; Q9957; Q9967; U0003; U0005